=== PATIENT | female | born 1925 | race Caucasian/White ===

== ENCOUNTER 2016-12-26 09:48 | Emergency (ER) | payer MEDICARE, OTHER ==
[2016-12-26 11:14] LABS: BASOPHILS # (AUTO) 0.1 10^3/uL (0.0-0.1); EOSINOPHILS % (AUTO) 0.5 %; HCT - HEMATOCRIT 37.2 % (37.0-47.0); HGB - HEMOGLOBIN 12.8 g/dL (12.0-16.0); LYMPHOCYTES # (AUTO) 1.2 10^3/uL (1.5-3.5); LYMPHOCYTES % (AUTO) 11.3 %; MEAN CORPUSCULAR HEMOGLOBIN 31.3 pg (27.0-31.0); MEAN CORPUSCULAR HGB CONC 34.3 g/dL (32.0-36.0); MEAN CORPUSCULAR VOLUME 91.2 fL (81.0-99.0); MEAN PLATELET VOLUME 7.6 fL (7.9-10.8); MONOCYTES # (AUTO) 0.9 10^3/uL (0.0-1.0); MONOCYTES % (AUTO) 8.3 %; NEUTROPHILS # (AUTO) 8.4 10^3/uL (1.5-6.6); NEUTROPHILS % (AUTO) 78.9 %; RED BLOOD COUNT 4.08 10^6/uL (4.20-5.40); RED CELL DISTRIBUTION WIDTH 12.7 % (12.0-15.0); UNCORRECTED WHITE BLOOD COUNT 10.7 x10^3/uL; WHITE BLOOD COUNT 10.7 x10^3/uL (4.8-10.8)
[2016-12-26 11:20] LABS: BILIRUBIN,URINE NEGATIVE (NEGATIVE)
[2016-12-26 11:21] LABS: UA w/ MICROSCOPIC CHARGE YES
[2016-12-26 11:26] LABS: ALBUMIN/GLOBULIN RATIO 1.2 (1.0-2.2); BILIRUBIN,TOTAL 1.1 mg/dL (0.2-1.0); CALCIUM 8.9 mg/dL (8.5-10.3); CREATININE 0.5 mg/dL (0.4-1.0); POTASSIUM 3.4 mmol/L (3.5-5.0); TOTAL PROTEIN 6.7 g/dL (6.7-8.2)
--- NOTE | 2016-12-26 11:29 | XRAY Preliminary Report ---
Exam: XR Abdomen 1 View IMPRESSION: 1. Nonspecific, nonobstructive bowel gas pattern. 2. Large amount of stool. [facility] SITE ID: [id number]
--- NOTE | 2016-12-26 11:31 | XRAY Report ---
EXAM: ABDOMEN RADIOGRAPHY EXAM DATE: 12/26/2016 11:03 AM. CLINICAL HISTORY: intestinal gas; with abd. pain. COMPARISON: None. TECHNIQUE: 1 view. FINDINGS: Bowel Gas Pattern: Mild/moderate colonic gas, without dilatation. Gaseous distended right abdominal b owel loop may represent a mildly dilated small bowel loop but substantial small bowel otherwise is no t demonstrated. This is a nonspecific, nonobstructive bowel gas pattern. Large amount stool present. Other: Upper lumbar dextro convexity scoliosis with extensive lumbar degenerative disease demonstrate d. Right upper quadrant abdominal surgical clips. IMPRESSION: 1. Nonspecific, nonobstructive bowel gas pattern. 2. Large amount of stool. [facility] Referring Provider Line: [phone] SITE ID: [id number]
[2016-12-26 11:36] LABS: UR CULTURE IF IND INDICATED
[2016-12-26] MEDS ORDERED: MINERAL OIL ENEMA 133 ML BOTTLE RC STA (12:30)
--- NOTE | 2016-12-26 12:32 | ED Physician Documentation ---
PD HPI ABD PAIN - Stated complaint Stated Complaint: INTESTINAL ISSUES - Chief complaint Chief Complaint: Abd Pain - History obtained from History obtained from: Patient, Family, Caregiver - History of Present Illness Timing - onset: How many days ago (several) Timing - details: Intermittant Quality: Other ("Full of gas") Location: All over / everywhere Associated symptoms: No: Fever, Nausea, Vomiting, Dysuria Similar symptoms before: Has not had sx before - Additional information Additional information: The patient is a very pleasant 89-year-old female who complains of being "full of gas." Her symptoms have been waxing and waning for the past several days. She denies associated nausea, vomiting, fever, or dysuria. She has been passing gas down below. She denies history of similar symptoms in the past. Surgical history is significant for hysterectomy, appendectomy, and cholecystectomy. She lives in her own home, and has a professional caster who accompanies her in the emergency department. Her daughter, who does not live with her, also accompanies her. Review of Systems Constitutional: denies: Fever Nose: denies: Congestion Throat: denies: Sore throat Cardiac: denies: Chest pain / pressure Respiratory: denies: Dyspnea, Cough GI: reports: Abdominal Pain (mild), Constipation. 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 HEENT: Cataracts - Present Medications Home Medications: Ambulatory Orders Medication Instructions Recorded Confirmed Acetaminophen [Tylenol] 650 mg PO Q8HR 10/20/15 10/20/15 Atorvastatin Calcium [Lipitor] 40 mg PO DAILY 10/20/15 10/20/15 Calcium Carbonate/Vitamin D3 600 mg PO DAILY 10/20/15 10/20/15 [Calcium 600 + Vit D 400 Tablet] Chlordiazepoxide/Clidinium Br 1 each PO ONCE PRN 10/20/15 10/20/15 [Librax Capsule] Hydrochlorothiazide 25 mg PO DAILY 10/20/15 10/20/15 L.acidoph/L.rhamn/B.bif/B.long 12.9 mg PO DAILY 10/20/15 10/20/15 [Probiotic Acidophilus Biobeads] Lansoprazole [Prevacid] 30 mg PO DAILY 10/20/15 10/20/15 Potassium Chloride [Micro-K] 10 meq PO DAILY 10/20/15 10/20/15 Tiotropium [place] [Spiriva] 18 mcg IH DAILY 10/20/15 10/20/15 Bisacodyl Supp [Dulcolax Supp] 10 mg ND DAILY #10 supp 12/26/16 Nitrofurantoin [Macrobid] 100 mg PO BID #10 capsule 12/26/16 - Allergies Allergies/Adverse Reactions: Allergies Allergy/AdvReac Type Severity Reaction Status Date / Time tetracycline Allergy Rash Verified 10/20/15 07:18 - Living Situation Living Arrangement: reports: At home - Social History Does the pt smoke?: No Smoking Status: Never smoker PD ED PE NORMAL - Vitals Vital signs reviewed: Yes (hypertensive initially) - General General: Alert and oriented X 3, Well developed/nourished - HEENT HEENT: Atraumatic, Pharynx benign - Neck Neck: No adenopathy, No JVD - Cardiac Cardiac: RRR - Respiratory Respiratory: No respiratory distress, Clear bilaterally - Abdomen Abdomen: Normal bowel sounds, Soft, Non tender, No organomegaly, Other ( Nondistended, with no focal tenderness to palpation, and no rebound tenderness or guarding.) - Back Back: No CVA TTP - Derm Derm: No rash - Extremities Extremities: No edema, No calf tenderness / cord - Neuro Neuro: Alert and oriented X 3, No motor deficit, Normal speech Results - Vitals Vitals: Oxygen O2 Source Room air - Labs Labs: Microbiology 12/26/16 11:11 Urine Culture - Preliminary Urine,Clean Catch Laboratory Tests 12/26/16 12/26/16 12/26/16 10:47 10:47 11:11 WBC 10.7 RBC 4.08 L Hgb 12.8 Hct 37.2 MCV 91.2 MCH 31.3 H MCHC 34.3 RDW 12.7 Plt Count 292 MPV 7.6 L Neut # 8.4 H Lymph # 1.2 L [place] # 0.9 Eos # 0.0 Baso # 0.1 Absolute Nucleated RBC 0.00 Nucleated RBCs 0.0 Sodium 129 L Potassium 3.4 L Chloride 92 L Carbon Dioxide 27 Anion Gap 10.0 BUN 10 Creatinine 0.5 Estimated GFR (MDRD) 116 Glucose 120 H Calcium 8.9 Total Bilirubin 1.1 H AST 19 ALT 15 Alkaline Phosphatase 61 Total Protein 6.7 Albumin 3.7 Globulin 3.0 Albumin/Globulin Ratio 1.2 Lipase 16 L Urine Color YELLOW Urine Clarity SL. CLOUDY Urine pH 7.0 Ur Specific [place] <=1.005 Urine Protein NEGATIVE Urine Glucose (UA) NEGATIVE Urine Ketones NEGATIVE Urine Occult Blood TRACE-LYSE Urine Nitrite POSITIVE H Urine Bilirubin NEGATIVE Urine Urobilinogen 0.2 (NORMAL) Ur Leukocyte Esterase NEGATIVE Urine RBC 0-5 Urine WBC 4-5 Ur Squamous Epith Cells RARE Squamous Urine Bacteria Many H Ur Microscopic Review INDICATED Urine Culture Comments INDICATED - Rads (name of study) 1-view abdominal xray Radiology: Prelim report reviewed, EMP read contemporaneously, See rad report ( Nonspecific, nonobstructive bowel gas pattern. A large amount of stool.) PD MEDICAL DECISION MAKING - ED course Complexity details: reviewed results, re-evaluated patient, considered differential, d/w patient, d/w family ED course: The patient's presentation is significant for constipation, which is confirmed on plainview abdominal film. Her presentation does not suggest bowel obstruction, diverticulitis, or pyelonephritis. Her urinalysis does reveal evidence of cystitis, with positive nitrites and many bacteria. Chemistry panel is significant for hyponatremia with a sodium of 129. Treatment in the emergency department included administration of mineral oil enema, which produced minimal results. In addition nitrofurantoin 100 mg administered orally. She is being discharged with prescriptions for Macrobid and Dulcolax. She will also use milk of magnesia. I discussed with her, her daughter, and her professional caster the results of her workup, outpatient treatment and follow-up, as well as potentially worrisome signs or symptoms that should prompt reevaluation in the emergency department. Departure - Departure Disposition: 01 Home, Self Care Clinical Impression: Hyponatremia Constipation Qualifiers: Constipation type: slow transit constipation Qualified Code(s): K59.01 - Slow transit constipation Urinary tract infection Qualifiers: Urinary tract infection type: acute cystitis Hematuria presence: without hematuria Qualified Code(s): N30.00 - Acute cystitis without hematuria Condition: Stable Instructions: ED Constipation, ED UTI Cystitis Female Follow-Up: Paris Jimenez PA [Primary Care Provider] - Prescriptions: Bisacodyl Supp [Dulcolax Supp] 10 mg ND DAILY #10 supp Nitrofurantoin [Macrobid] 100 mg PO BID #10 capsule Comments: Drink plenty of fluids, including cranberry juice. Eat fruits such as purulence, apricots, peaches, that promote bowel movement. You can take Milk of Magnesia, 30 mL daily. Use Dulcolax suppositories daily, and fleets enema as needed. Take Macrobid twice daily for 5 days as prescribed. Follow up with her primary physician as scheduled. Return to the emergency department if you develop increasing abdominal pain, or otherwise worsening symptoms. Discharge Date/Time: 12/26/16 13:11
[2016-12-26] MEDS ORDERED: NITROFURANTOIN MACRO 100 MG CAPSULE PO STA (12:46)
[2016-12-26 12:58] VITALS: BP 123/85
== END 2016-12-26 13:11 | disposition home or self-care (01) ==
LOC: ED 09:48
DX: E87.1 Hypo-osmolality and hyponatremia (principal); K59.01 Slow transit constipation; N30.00 Acute cystitis without hematuria; I10 Essential (primary) hypertension; E78.00 Pure hypercholesterolemia, unspecified; J44.9 Chronic obstructive pulmonary disease, unspecified; K21.9 Gastro-esophageal reflux disease without esophagitis
CPT/HCPCS: 36415; 74000; 80053; 81001; 83690; 85025; 87077; 87086; 87181; 99284; A9270; 81003

== ENCOUNTER 2017-02-11 15:27 | Emergency (ER) | payer MEDICARE, OTHER ==
--- NOTE | 2017-02-11 15:55 | ED Physician Documentation ---
History of Present Illness - Stated complaint Stated Complaint: CONFUSION / RASH UNDER BREAST/ FEMALE - Chief complaint Chief Complaint: General - Additonal information Additional information: hx from pt and daughter 89 female AMS /confusion for about a week hx same with UTI no MALONE CP AP no fever chills cough NVD does have a rash under breasts and in inguinal creases despite drying powder no falls, no med changes Review of Systems Constitutional: denies: Fever, Chills Cardiac: denies: Chest pain / pressure Respiratory: denies: Dyspnea, Cough GI: denies: Abdominal Pain, Nausea, Vomiting, Diarrhea Skin: reports: Rash Neurologic: reports: Confused. 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 HEENT: Cataracts - Present Medications Home Medications: Ambulatory Orders Medication Instructions Recorded Confirmed Acetaminophen [Tylenol] 650 mg PO Q8HR 10/20/15 02/11/17 Atorvastatin Calcium [Lipitor] 40 mg PO DAILY 10/20/15 02/11/17 Calcium Carbonate/Vitamin D3 600 mg PO DAILY 10/20/15 02/11/17 [Calcium 600 + Vit D 400 Tablet] Hydrochlorothiazide 25 mg PO DAILY 10/20/15 02/11/17 L.acidoph/L.rhamn/B.bif/B.long 12.9 mg PO DAILY 10/20/15 02/11/17 [Probiotic Acidophilus Biobeads] Lansoprazole [Prevacid] 30 mg PO DAILY 10/20/15 02/11/17 Potassium Chloride [Micro-K] 10 meq PO DAILY 10/20/15 02/11/17 Tiotropium [place] [Spiriva] 18 mcg IH DAILY 10/20/15 02/11/17 Bisacodyl Supp [Dulcolax Supp] 10 mg [place] DAILY #10 supp 12/26/16 02/11/17 Azithromycin [Zithromax] 250 mg PO DAILY #6 tablet 02/11/17 Clotrimazole [Clotrimazole AF] 1 applic TP BID #30 g 02/11/17 - Allergies Allergies/Adverse Reactions: Allergies Allergy/AdvReac Type Severity Reaction Status Date / Time tetracycline Allergy Rash Verified 10/20/15 07:18 - Social History Does the pt smoke?: No Smoking Status: Never smoker PD ED PE NORMAL - Vitals Vital signs reviewed: Yes - General General: Other (alert oriented to name place and present president) - HEENT HEENT: Atraumatic, PERRL - Neck Neck: Supple, no meningeal sign - Cardiac Cardiac: RRR - Respiratory Respiratory: No respiratory distress, Clear bilaterally - Abdomen Abdomen: Soft, Non tender - Derm Derm: Other (yeast dermatitis under breast to to inguinal region) - Neuro Neuro: Alert and oriented X 3 (to person place and close on date - knows she read Sunday news today) - Psych Psych: Other (cherful) Results - Vitals Vitals: Vital Signs - 24 hr 02/11/17 02/11/17 15:36 17:59 Temperature 36.5 C Heart Rate 83 85 Respiratory 18 Rate Blood Pressure 205/88 H 206/100 H O2 Saturation 97 95 Oxygen O2 Source Nasal cannula - Labs Labs: Laboratory Tests 02/11/17 02/11/17 02/11/17 16:13 16:13 17:00 WBC 11.3 H RBC 4.23 Hgb 12.9 Hct 39.3 MCV 93.0 MCH 30.5 MCHC 32.8 RDW 13.0 Plt Count 287 MPV 7.7 L Neut # 8.8 H Lymph # 1.3 L [place] # 1.1 H Eos # 0.1 Baso # 0.1 Absolute Nucleated RBC 0.00 Nucleated RBCs 0.0 Sodium 134 L Potassium 3.7 Chloride 97 L Carbon Dioxide 29 Anion Gap 8.0 BUN 13 Creatinine 0.6 Estimated GFR (MDRD) 94 Glucose 117 H Calcium 9.2 Urine Color YELLOW Urine Clarity CLOUDY Urine pH 7.0 Ur Specific [place] 1.010 Urine Protein NEGATIVE Urine Glucose (UA) NEGATIVE Urine Ketones NEGATIVE Urine Occult Blood TRACE-LYSE Urine Nitrite NEGATIVE Urine Bilirubin NEGATIVE Urine Urobilinogen 0.2 (NORMAL) Ur Leukocyte Esterase NEGATIVE Urine RBC 0-5 Urine WBC 0-3 Ur Squamous Epith Cells MOD Squamous H Amorphous Sediment Marked Urine Bacteria None Seen Ur Microscopic Review INDICATED Urine Culture Comments NOT INDICATED - Rads (name of study) CXR Radiology: See rad report (lingular infiltrate) Departure - Departure Disposition: 01 Home, Self Care Clinical Impression: Yeast dermatitis Pneumonia Qualifiers: Pneumonia type: due to unspecified organism Laterality: left Lung location: unspecified part of lung Qualified Code(s): J18.9 - Pneumonia, unspecified organism Condition: Good Instructions: ED Candidiasis Cutaneous Prescriptions: Clotrimazole [Clotrimazole AF] 1 applic TP BID #30 g Azithromycin [Zithromax] 250 mg PO DAILY #6 tablet Comments: So there was no urine infection but the chest xray showed a pneumonia. As with urine and other infections, infections, pneumonia can cause some temporary confusion. This should get better as the antibiotics have a chance to work But I recommend you stay with a family member or caregiver or some other responsible adult at all times until you feel better Please follow up with your PMD to get your blood pressure rechecked - it was high today
[2017-02-11 16:21] LABS: BASOPHILS # (AUTO) 0.1 10^3/uL (0.0-0.1); BASOPHILS % (AUTO) 0.5 %; EOSINOPHILS # (AUTO) 0.1 10^3/uL (0.0-0.7); HCT - HEMATOCRIT 39.3 % (37.0-47.0); HGB - HEMOGLOBIN 12.9 g/dL (12.0-16.0); LYMPHOCYTES # (AUTO) 1.3 10^3/uL (1.5-3.5); LYMPHOCYTES % (AUTO) 11.4 %; MEAN CORPUSCULAR HEMOGLOBIN 30.5 pg (27.0-31.0); MEAN CORPUSCULAR HGB CONC 32.8 g/dL (32.0-36.0); MEAN PLATELET VOLUME 7.7 fL (7.9-10.8); MONOCYTES # (AUTO) 1.1 10^3/uL (0.0-1.0); MONOCYTES % (AUTO) 9.9 %; NEUTROPHILS # (AUTO) 8.8 10^3/uL (1.5-6.6); NEUTROPHILS % (AUTO) 77.2 %; RED BLOOD COUNT 4.23 10^6/uL (4.20-5.40); UNCORRECTED WHITE BLOOD COUNT 11.3 x10^3/uL; WHITE BLOOD COUNT 11.3 x10^3/uL (4.8-10.8)
[2017-02-11 16:37] LABS: CALCIUM 9.2 mg/dL (8.5-10.3); CREATININE 0.6 mg/dL (0.4-1.0); POTASSIUM 3.7 mmol/L (3.5-5.0)
[2017-02-11 17:19] LABS: BILIRUBIN,URINE NEGATIVE (NEGATIVE)
[2017-02-11 17:29] LABS: UA w/ MICROSCOPIC CHARGE YES
[2017-02-11 17:30] LABS: UR CULTURE IF IND NOT INDICATED; WBC,URINE 0-3 /HPF (0-5)
[2017-02-11] MEDS ORDERED: AZITHROMYCIN 250 MG TABLET PO STA (17:48)
[2017-02-11] MEDS ORDERED: AZITHROMYCIN 250 MG TABLET PO ONE (17:56)
--- NOTE | 2017-02-11 19:47 | XRAY Preliminary Report ---
Exam: XR Chest 2 View PA/LAT IMPRESSION: Hyperinflated lungs, in keeping with COPD. [facility] SITE ID: [id number]
--- NOTE | 2017-02-11 19:49 | XRAY Report ---
EXAM: CHEST RADIOGRAPHY EXAM DATE: 02/11/2017 07:07 PM. CLINICAL HISTORY: AMS, concern for infection. COMPARISON: CT 01/28/2016. TECHNIQUE: 2 views. FINDINGS: Lungs/Pleura: The lungs are hyperinflated, in keeping with COPD. No focal consolidation. No large ple ural effusions. Mediastinum: Heart and mediastinal contours are unremarkable. Other: None. IMPRESSION: Hyperinflated lungs, in keeping with COPD. [facility] Referring Provider Line: [phone] SITE ID: [id number]
[2017-02-11 20:25] VITALS: BP 192/90
== END 2017-02-11 20:28 | disposition home or self-care (01) ==
LOC: ED 15:27
DX: L30.8 Other specified dermatitis (principal); B37.9 Candidiasis, unspecified; J11.89 Influenza due to unidentified influenza virus with other manifestations; I10 Essential (primary) hypertension; E78.00 Pure hypercholesterolemia, unspecified
CPT/HCPCS: 36415; 71020; 80048; 81001; 85025; 99283; A9270; 81003; 87086

== ENCOUNTER 2017-02-14 10:09 | Outpatient (CLI) | payer MEDICARE, OTHER ==
[2017-02-14] MEDS ORDERED: IOPAMIDOL-300 100 ML VIAL IVP ONE (12:09)
--- NOTE | 2017-02-14 15:32 | CT Report ---
CT OF THE ABDOMEN AND PELVIS WITH CONTRAST: 02/14/2017 CLINICAL INDICATION: Abdominal pain. TECHNIQUE: Axial CT images of the abdomen and pelvis were obtained with 100 mL of Isovue-300 intraven ously. As requested, oral contrast was not administered. No previous CT is available for comparison. FINDINGS: Limited evaluation of the lung bases demonstrates a moderate hiatal hernia and linear atel ectasis. ABDOMEN: The patient is status post cholecystectomy. The liver, spleen, pancreas, kidneys and adrenal glands appear unremarkable. No bowel dilatation, free gas, or free fluid is present. No abdominal ad enopathy is seen. PELVIS: There is sigmoid diverticulosis, without CT evidence of diverticulitis. No pelvic adenopathy or free fluid is present. The patient is status post hysterectomy. The osseous structures demonstrate degenerative changes. IMPRESSION: MODERATE HIATAL HERNIA. NO EVIDENCE OF BOWEL OBSTRUCTION. DIVERTICULOSIS, WITHOUT CT SUBHA DENCE OF DIVERTICULITIS. In accordance with CT protocol optimization, one or more of the following dose reduction techniques w ere utilized for this exam: automated exposure control, adjustment of mA and/or KV based on patient size, or use of iterative reconstructive technique. JOB #: [id number] EXT JOB #:[id number]
== END 2017-02-14 10:10 | disposition home or self-care (01) ==
LOC: DI 10:09
PROVIDERS: ATTEND Physician Assistant
DX: R10.9 Unspecified abdominal pain (principal); K59.00 Constipation, unspecified; R11.0 Nausea; K44.9 Diaphragmatic hernia without obstruction or gangrene
CPT/HCPCS: 74177; Q9967; 36415; 80053

== ENCOUNTER 2017-02-27 11:08 | Outpatient (CLI) | payer MEDICARE, OTHER ==
--- NOTE | 2017-02-27 13:43 | CT Report ---
CT BRAIN WITHOUT CONTRAST: 02/27/2017 CLINICAL INDICATION: Confusion, memory loss. COMPARISON: 02/19/2006 TECHNIQUE: Axial CT images of the brain were obtained without intravenous contrast. FINDINGS: There has been progression of atrophy, with symmetric enlargement of ventricles and sulci. Chronic ischemic changes are noted in the periventricular white matter structures. There is no garcia dence of acute hemorrhage, mass effect, or midline shift. The basilar cisterns are patent. The visu alized orbital contents and paranasal sinuses are unremarkable. IMPRESSION: ATROPHY AND CHRONIC ISCHEMIC CHANGES. NO EVIDENCE OF HEMORRHAGE OR MASS EFFECT. In accordance with CT protocol optimization, one or more of the following dose reduction techniques w ere utilized for this exam: automated exposure control, adjustment of mA and/or KV based on patient size, or use of iterative reconstructive technique. JOB #: [id number] EXT JOB #:[id number]
== END 2017-02-27 11:09 | disposition home or self-care (01) ==
LOC: DI 11:08
PROVIDERS: ATTEND Physician Assistant
DX: R90.89 Other abnormal findings on diagnostic imaging of central nervous system (principal)
CPT/HCPCS: 70450

== ENCOUNTER 2017-03-28 08:00 | Outpatient (CLI) | payer MEDICARE, OTHER ==
[2017-03-28 14:56] LABS: BILIRUBIN,URINE NEGATIVE (NEGATIVE)
[2017-03-28 14:57] LABS: UA CHARGE (STRIP ONLY) YES; UR CULTURE IF IND NOT INDICATED
== END 2017-03-28 08:01 | disposition home or self-care (01) ==
LOC: LAB.R 08:00
PROVIDERS: ATTEND Nurse Practitioner Family
DX: R30.0 Dysuria (principal)
CPT/HCPCS: 81001; 81003; 87086

== ENCOUNTER 2017-07-25 17:49 | Inpatient (IN) | payer MEDICARE, OTHER ==
[2017-07-25] MEDS ORDERED: LIDOCAINE 1% 2 ML VIAL SUBQ ONE (19:16)
[2017-07-25] MEDS ORDERED: cefTRIAXone 1 GM VIAL IM STA (19:16)
--- NOTE | 2017-07-25 19:17 | ED Physician Documentation ---
History of Present Illness - Stated complaint Stated Complaint: COUGHING UP BLOOD - Chief complaint Chief Complaint: General - History obtained from History obtained from: Patient, Family (daughter) - History of Present Illness Timing: Other (She fell without injury this morning, they noticed she was running a low-grade fever and she was taken to an urgent care, a urinalysis was positive but she has not been able to start the antibiotics yet. 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 HEENT: Cataracts - Present Medications Home Medications: Ambulatory Orders Medication Instructions Recorded Confirmed Acetaminophen [Tylenol] 650 mg PO Q8HR 10/20/15 07/25/17 Atorvastatin Calcium [Lipitor] 40 mg PO DAILY 10/20/15 07/25/17 Calcium Carbonate/Vitamin D3 600 mg PO DAILY 10/20/15 07/25/17 [Calcium 600 + Vit D 400 Tablet] Hydrochlorothiazide 25 mg PO DAILY 10/20/15 07/25/17 L.acidoph/L.rhamn/B.bif/B.long 12.9 mg PO DAILY 10/20/15 07/25/17 [Probiotic Acidophilus Biobeads] Lansoprazole [Prevacid] 30 mg PO DAILY 10/20/15 07/25/17 Potassium Chloride [Micro-K] 10 meq PO DAILY 10/20/15 07/25/17 Tiotropium [place] [Spiriva] 18 mcg IH DAILY 10/20/15 07/25/17 Bisacodyl Supp [Dulcolax Supp] 10 mg [place] DAILY #10 supp 12/26/16 07/25/17 Clotrimazole [Clotrimazole AF] 1 applic TP BID #30 g 02/11/17 07/25/17 - Allergies Allergies/Adverse Reactions: Allergies Allergy/AdvReac Type Severity Reaction Status Date / Time tetracycline Allergy Rash Verified 10/20/15 07:18 - Social History Does the pt smoke?: No Smoking Status: Never smoker PD ED PE NORMAL - Vitals Vital signs reviewed: Yes - General General: Other (Alert and cooperative and pleasant but with poor memory) - HEENT HEENT: PERRL, EOMI - Neck Neck: Supple, no meningeal sign, No bony TTP - Cardiac Cardiac: RRR, No murmur - Respiratory Respiratory: No respiratory distress, Clear bilaterally - Abdomen Abdomen: Non tender - Extremities Extremities: No edema, No calf tenderness / cord - Neuro Eye Opening: Spontaneous Motor: Obeys Commands Verbal: Confused GCS Score: 14 - Psych Psych: Normal mood, Normal affect Results - Vitals Vitals: Vital Signs - 24 hr 07/25/17 07/25/17 18:03 20:58 Temperature 37.0 C Heart Rate 101 H 93 Respiratory 20 17 Rate Blood Pressure 99/63 106/51 L O2 Saturation 90 L 94 Oxygen O2 Source Room air - Labs Labs: Laboratory Tests 07/25/17 07/25/17 07/25/17 19:10 19:10 19:10 WBC 26.9 H RBC 4.18 L Hgb 12.1 Hct 37.2 MCV 89.1 MCH 28.8 MCHC 32.4 RDW 13.4 Plt Count 246 MPV 7.5 L Neut # Not Reportable Lymph # Not Reportable [place] # Not Reportable Eos # Not Reportable Baso # Not Reportable Absolute Nucleated RBC Not Reportable Total Counted 100 Band Neuts % (Manual) 10 Abnorm Lymph % (Manual) 0 Nucleated RBC % Not Reportable Neutrophils # (Manual) 24.7 H Lymphocytes # (Manual) 0.5 L Monocytes # (Manual) 1.6 H Eosinophils # (Manual) 0.0 Basophils # (Manual) 0.0 Differential Comment MANUAL DIFFERENTIAL Platelet Estimate NORMAL (130-450,000) Platelet Morphology NORMAL APPEARANCE RBC Morph Micro Appear NORMAL APPEARANCE PT INR Sodium 133 L Potassium 3.0 L Chloride 96 L Carbon Dioxide 25 Anion Gap 12.0 BUN 17 Creatinine 1.0 Estimated GFR (MDRD) 52 L Glucose 127 H Lactic Acid 1.5 Calcium 8.4 L Total Bilirubin 1.5 H AST 40 ALT 27 Alkaline Phosphatase 108 Total Protein 6.3 L Albumin 3.1 L Globulin 3.2 Albumin/Globulin Ratio 1.0 Lipase 14 L 07/25/17 19:10 WBC RBC Hgb Hct MCV MCH MCHC RDW Plt Count MPV Neut # Lymph # [place] # Eos # Baso # Absolute Nucleated RBC Total Counted Band Neuts % (Manual) Abnorm Lymph % (Manual) Nucleated RBC % Neutrophils # (Manual) Lymphocytes # (Manual) Monocytes # (Manual) Eosinophils # (Manual) Basophils # (Manual) Differential Comment Platelet Estimate Platelet Morphology RBC Morph Micro Appear PT 12.9 H INR 1.1 Sodium Potassium Chloride Carbon Dioxide Anion Gap BUN Creatinine Estimated GFR (MDRD) Glucose Lactic Acid Calcium Total Bilirubin AST ALT Alkaline Phosphatase Total Protein Albumin Globulin Albumin/Globulin Ratio Lipase - Rads (name of study) 2v chest Radiology: EMP read contemporaneously (NAD) PD MEDICAL DECISION MAKING - ED course ED course: 89-year-old woman with known UTI, has not been able to start the antibiotics and presents with slight hemoptysis tonight but has normal pulmonary examination. Workup demonstrates a significantly elevated white blood cell count at 26,000 and therefore admission is mandated and a call the hospitalist was placed at 7:38 PM. - Consults Consults: Consulted (name) (Spoke with Dr. Medina for admission at 7:50 PM.) Departure - Departure Disposition: [facility] DC/Xfer Clinical Impression: Urinary tract infection Qualifiers: Urinary tract infection type: acute pyelonephritis Qualified Code(s): N10 - Acute pyelonephritis Sepsis Qualifiers: Sepsis type: sepsis due to unspecified organism Qualified Code(s): A41.9 - Sepsis, unspecified organism Condition: Serious
[2017-07-25 19:20] LABS: BASOPHILS % (AUTO) 0.2 %; HGB - HEMOGLOBIN 12.1 g/dL (12.0-16.0); LYMPHOCYTES % (AUTO) 1.5 %; MEAN CORPUSCULAR HEMOGLOBIN 28.8 pg (27.0-31.0); MEAN CORPUSCULAR HGB CONC 32.4 g/dL (32.0-36.0); MEAN CORPUSCULAR VOLUME 89.1 fL (81.0-99.0); MEAN PLATELET VOLUME 7.5 fL (7.9-10.8); MONOCYTES % (AUTO) 3.6 %; NEUTROPHILS % (AUTO) 94.7 %; PLT - PLATELET COUNT 246 10^3/uL (130-450); RED BLOOD COUNT 4.18 10^6/uL (4.20-5.40); RED CELL DISTRIBUTION WIDTH 13.4 % (12.0-15.0); WHITE BLOOD COUNT 26.9 x10^3/uL (4.8-10.8)
[2017-07-25 19:23] LABS: ABNORMAL LYMPHS % (MANUAL) 0 %
--- NOTE | 2017-07-25 19:27 | XRAY Preliminary Report ---
Exam: XR CHEST 2 VIEW X-RAY IMPRESSION: Chronic lung disease. [facility] SITE ID: [id number]
[2017-07-25 19:34] LABS: ALBUMIN 3.1 g/dL (3.2-5.5); BILIRUBIN,TOTAL 1.5 mg/dL (0.2-1.0); CALCIUM 8.4 mg/dL (8.5-10.3); TOTAL PROTEIN 6.3 g/dL (6.7-8.2)
--- NOTE | 2017-07-25 19:34 | XRAY Report ---
EXAM: CHEST RADIOGRAPHY EXAM DATE: 07/25/2017 07:01 PM. CLINICAL HISTORY: Cough. COMPARISON: 02/11/2017. TECHNIQUE: 2 views. FINDINGS: Lungs/Pleura: No focal opacities evident. No pleural effusion. No pneumothorax. Overexpanded. Mediastinum: Heart and mediastinal contours are unremarkable. Other: None. IMPRESSION: Chronic lung disease. [facility] Referring Provider Line: [phone] SITE ID: [id number]
[2017-07-25] MEDS ORDERED: SODIUM CHLORIDE 0.9% 1,000 ML IV ONE (19:37)
[2017-07-25] MEDS ORDERED: levoFLOXacin 500 MG/100 ML 500 MG/100 ML BAG IV STA (19:38)
[2017-07-25 19:56] LABS: BAND NEUTROPHILS % (MANUAL) 10 %; LYMPHOCYTES # (MANUAL) 0.5 10^3/uL (1.5-3.5); LYMPHOCYTES % (MANUAL) 2 %; MONOCYTES # (MANUAL) 1.6 10^3/uL (0.0-1.0); NEUTROPHILS # (MANUAL) 24.7 10^3/uL (1.5-6.6); NEUTROPHILS % (MANUAL) 82 %
[2017-07-25 19:57] LABS: DIFFERENTIAL COMMENT MANUAL DIFFERENTIAL; PLATELET ESTIMATE, MANUAL NORMAL (130-450,000) (NORMAL); PLATELET MORPHOLOGY NORMAL APPEARANCE (NORMAL); RBC MORPHOLOGY (MULTIPLE) NORMAL APPEARANCE (NORMAL)
[2017-07-25] MEDS ORDERED: ACETAMINOPHEN 325 MG TABLET PO PRN (21:34)
[2017-07-25 21:48] LABS: INR 1.1 (0.8-1.2); PT - PROTHROMBIN TIME 12.9 secs (9.9-12.6)
[2017-07-25] MEDS: DEXTROSE 5%-0.9% NACL 1,000 ML IV SCH (23:36)
[2017-07-25] MEDS: SODIUM CHLORIDE FLUSH 0.9% 10 ML SYRINGE IVP SCH (23:36)
[2017-07-25] MEDS ORDERED: PROCHLORPERAZINE INJ 10 MG in SODIUM CHLORIDE 0.9% 50 ML IV PRN (23:42)
--- NOTE | 2017-07-26 03:58 | HISTORY & PHYSICAL EXAMINATION ---
DATE OF SERVICE: 07/25/2017 Physician: Petrona Krause MD DATE OF ADMISSION: 07/25/2017 HISTORY OF PRESENT ILLNESS: This is an 89-year-old white female with a history of hypertension, hyperlipidemia, COPD, GERD, chronic back pain, and cataracts. She states that she was weak and fell this morning and family members noticed that she was running a low grade fever and took her to Urgent Care where a urinalysis was done and was positive for a UTI and she was to start antibiotics, which she has not yet picked up. She had a small amount of cough with blood-tinged sputum tonight and for that reason the family brought her to the emergency room. The patient cannot give a detailed history of the current events, but has a memory for remote events. The patient states she currently only has her chronic hip and low back pain and no other complaints. She is not short of breath. She does have some mild dysuria. She has had no shaking chills. She is compliant with all her medications. She was hypotensive in the emergency room and felt to be septic and has been admitted for urosepsis REVIEW OF SYSTEMS: A comprehensive review of systems was attempted; however, she is confused and cannot give details, she repeats her answers multiple times. The only positives are what are available in the HPI above. PAST MEDICAL HISTORY: Hypertension, hyperlipidemia, COPD, GERD, chronic back pain, and cataracts. MEDICATIONS AT HOME 1. Tylenol p.r.n. 2. Lipitor 40 mg daily. 3. Calcium with vitamin D3. 4. Hydrochlorothiazide 25 mg daily. 5. Lactobacillus daily. 6. Prevacid daily. 7. Potassium chloride 10 mEq daily. 8. Spiriva daily. 9. Dulcolax suppository p.r.n. 10. Clotrimazole topical b.i.d. ALLERGIES: TETRACYCLINE, WHICH CAUSED A RASH. SOCIAL HISTORY: She never smoked, drinks no alcohol. She lives with her daughter. PHYSICAL EXAMINATION GENERAL: Elderly white female who is in no distress. VITAL SIGNS: Blood pressure on presentation was 99/63 and after fluid hydration she is now 117/53. Her pulse is 87 in sinus rhythm. Her early pulse was 101. She is afebrile, room air saturation is 94%. HEENT: Shows moist oral mucosa. NECK: Shows no JVD, no carotid bruits, no lymphadenopathy. CHEST: Clear. No wheezes or rales. HEART: Sounds are normal. No audible murmurs. ABDOMEN: Soft. EXTREMITIES: Show no clubbing, cyanosis or edema. SKIN: Mild tenting. NEUROLOGIC: Grossly intact except for the memory as described above. LABORATORY DATA: Sodium 133, potassium 3.0, BUN 17, creatinine 1.0. Bilirubin 1.5, alkaline phosphatase normal, AST and ALT normal. Albumin 3.1, lipase normal. White blood count 26.9 with a left shift, hemoglobin is 12 and platelet count normal at 246. INR normal at 1.1. IMAGING: Chest x-ray showed COPD and no infiltrates were seen. No EKG was done. IMPRESSION/DIAGNOSES 1. Sepsis by virtue of tachycardia, low blood pressure, and the urinary tract infection is the likely source. 2. Urinary tract infection with dysuria. 3. Chronic obstructive pulmonary disease, on Spiriva. 4. Confusion, probable dementia. 5. Hyponatremia and evidence of mild dehydration on clinical exam. PLAN Admit the patient to medical/surgical floor, begin IV hydration, and her diet can be regular. (The patient did have a regular dinner today though and started vomiting after her milk; therefore, I will change the diet to a full liquid diet). Obtain urine and blood cultures and if possible, since there was sputum production, also obtain a sputum culture. Continue with the IV antibiotics that were started in the ER for urosepsis, using ceftriaxone and levofloxacin. Follow her white blood count, sodium, BUN, creatinine, and obtain a magnesium. DVT prophylaxis: Lovenox 40 mg subcutaneous daily. CODE STATUS: DO NOT RESUSCITATE (I reviewed this with the patient at bedside with the nurse present to confirm this). ATTESTATION: The patient will be discharged or transferred to another facility within 96 hours: Yes. TD: 07/26/2017 04:57 AMBER
[2017-07-26 05:44] LABS: BASOPHILS % (AUTO) 0.2 %; HGB - HEMOGLOBIN 10.6 g/dL (12.0-16.0); LYMPHOCYTES % (AUTO) 2.9 %; MEAN CORPUSCULAR HEMOGLOBIN 29.5 pg (27.0-31.0); MEAN CORPUSCULAR VOLUME 89.4 fL (81.0-99.0); MEAN PLATELET VOLUME 7.9 fL (7.9-10.8); MONOCYTES % (AUTO) 6.8 %; NEUTROPHILS % (AUTO) 90.1 %; PLT - PLATELET COUNT 196 10^3/uL (130-450); RED CELL DISTRIBUTION WIDTH 13.2 % (12.0-15.0); WHITE BLOOD COUNT 27.1 x10^3/uL (4.8-10.8)
[2017-07-26 05:52] LABS: CALCIUM 7.9 mg/dL (8.5-10.3); CREATININE 0.9 mg/dL (0.4-1.0)
[2017-07-26 05:58] LABS: ABNORMAL LYMPHS % (MANUAL) 0 %
[2017-07-26 06:14] LABS: BAND NEUTROPHILS % (MANUAL) 17 %; DIFFERENTIAL COMMENT MANUAL DIFFERENTIAL; LYMPHOCYTES # (MANUAL) 1.4 10^3/uL (1.5-3.5); LYMPHOCYTES % (MANUAL) 5 %; MONOCYTES # (MANUAL) 0.8 10^3/uL (0.0-1.0); NEUTROPHILS # (MANUAL) 24.9 10^3/uL (1.5-6.6); NEUTROPHILS % (MANUAL) 75 %; PLATELET ESTIMATE, MANUAL NORMAL (130-450,000) (NORMAL); RBC MORPHOLOGY (MULTIPLE) NORMAL APPEARANCE (NORMAL)
[2017-07-26] MEDS: SODIUM CHLORIDE FLUSH 0.9% 10 ML SYRINGE IVP SCH ×3 (06:52→21:22)
--- NOTE | 2017-07-26 08:01 | PROVIDER PROGRESS NOTE ---
Subjective - Prog Note Date Prog Note Date: 07/26/17 Prog Note Time: 08:00 - Subjective Pt reports feeling: Improved Subjective: Melody complains of discomfort in her right inner cheek, where she may have bit herself during her recent fall at [facility]. She denies SOB, chest pain , N/V or a new cough. Current Medications - Current Medications Current Medications: Active Medications Acetaminophen (Tylenol) 650 mg PO Q4HR PRN PRN Reason: Pain 1 to 4 Last Admin: 07/25/17 23:43 Dose: 650 mg Atorvastatin Calcium (Lipitor) 40 mg PO DAILY [facility] Bisacodyl (Dulcolax Supp) 10 mg RI DAILY [facility] Enoxaparin Sodium (Lovenox) 40 mg SUBQ DAILY [facility] Famotidine (Pepcid) 20 mg PO DAILY [facility] Dextrose/Sodium Chloride (D5ns) 1,000 mls @ 100 mls/hr IV .Q10H [facility] Last Admin: 07/25/17 23:36 Dose: 100 mls/hr Levofloxacin (Levaquin 750 Mg/150 Ml) 750 mg in 150 mls @ 100 mls/hr IV Q48H [facility] Ceftriaxone Sodium 1 gm/ (Sodium Chloride) 100 mls @ 200 mls/hr IV Q24H [facility] Prochlorperazine Edisylate 10 (mg/ Sodium Chloride) 52 mls @ 200 mls/hr IV Q6H PRN PRN Reason: Nausea / Vomiting Last Infusion: 07/26/17 00:35 Dose: Infused Ipratropium [place] (Atrovent) 0.5 mg INH RTQID [facility] Polyethylene Glycol (Miralax) 17 gm PO DAILY [facility] Sodium Chloride (Normal Saline Flush 0.9%) 10 ml IVP PRN PRN PRN Reason: NEEDED PER PROVIDER ORDERS Sodium Chloride (Normal Saline Flush 0.9%) 10 ml IVP Q8HR [facility] Last Admin: 07/26/17 06:52 Dose: Not Given Acetaminophen [Tylenol] 650 mg PO Q8HR 10/20/15 Atorvastatin Calcium [Lipitor] 40 mg PO DAILY 10/20/15 Calcium Carbonate/Vitamin D3 [Calcium 600 + Vit D 400 Tablet] 600 mg PO DAILY Hydrochlorothiazide 25 mg PO DAILY 10/20/15 L.acidoph/L.rhamn/B.bif/B.long [Probiotic Acidophilus Biobeads] 12.9 mg PO DAILY 10/20/15 Lansoprazole [Prevacid] 30 mg PO DAILY 10/20/15 Potassium Chloride [Micro-K] 10 meq PO DAILY 10/20/15 Tiotropium [place] [Spiriva] 18 mcg IH DAILY 10/20/15 Objective - Vital Signs/Intake & Output Reviewed Vital Signs: Yes Vital Signs: Vital Signs x48h Temp Pulse Resp BP Pulse Ox 07/26/17 01:55 36.8 C 83 16 112/49 L 97 Intake & Output: Intake & Output 07/23/17 07/24/17 07/25/17 07/26/17 23:59 23:59 23:59 23:59 Intake Total 1100 302 Balance 1100 302 - Objective General Appearance: positive: No acute distress Eyes Bilateral: positive: Normal inspection Eyes: OU Conjunctivae pale, OU Scleral icterus ENT: positive: ENT inspection nml, Pharynx nml, No signs of dehydration Neck: positive: Nml inspection, Thyroid nml, No JVD, Stiff neck Respiratory: positive: Chest non-tender, No respiratory distress, Breath sounds nml Cardiovascular: positive: Regular rate & rhythm, No gallop, Systolic murmur Peripheral Pulses: 2+ Radial (R), 2+ Radial (L) Abdomen: positive: Non-tender, No organomegaly, Nml bowel sounds, No distention , Other (rounded, soft.) Back: positive: Nml inspection Skin: positive: No rash, Warm, Dry, Pallor Extremities: positive: Non-tender, Full ROM, Nml appearance, No pedal edema Neurologic/Psychiatric: positive: CN's nml (2-12), Motor nml, Sensation nml, Disoriented to time, Weakness, Depressed mood/affect, Other (chronic STM lose.) Reflexes: Bicep (R): 2+, Bicep (L): 2+ - Lab Results Fish Bones: 07/26/17 05:33 07/26/17 05:33 Other Labs: Lab Results x24hrs 07/26/17 07/26/17 Range/Units 05:33 05:33 WBC 27.1 H (4.8-10.8) x10^3/uL RBC 3.60 L (4.20-5.40) 10^6/uL Hgb 10.6 L (12.0-16.0) g/dL Hct 32.2 L (37.0-47.0) % MCV 89.4 (81.0-99.0) fL MCH 29.5 (27.0-31.0) pg MCHC 33.0 (32.0-36.0) g/dL RDW 13.2 (12.0-15.0) % Plt Count 196 (130-450) 10^3/uL MPV 7.9 (7.9-10.8) fL Neut # Not Reportable Lymph # Not Reportable [place] # Not Reportable Eos # Not Reportable Baso # Not Reportable Absolute Nucleated RBC Not Reportable Total Counted 100 Band Neuts % (Manual) 17 H (0 - 10) % Abnorm Lymph % (Manual) 0 % Nucleated RBC % Not Reportable Neutrophils # (Manual) 24.9 H (1.5-6.6) 10^3/uL Lymphocytes # (Manual) 1.4 L (1.5-3.5) 10^3/uL Monocytes # (Manual) 0.8 (0.0-1.0) 10^3/uL Eosinophils # (Manual) 0.0 (0-0.7) 10^3/uL Basophils # (Manual) 0.0 (0-0.1) 10^3/uL Differential Comment MANUAL DIFFERENTIAL Platelet Estimate NORMAL (130-450,000) (NORMAL) RBC Morph Micro Appear NORMAL APPEARANCE (NORMAL) Sodium 136 (135-145) mmol/L Potassium 3.4 L (3.5-5.0) mmol/L Chloride 101 (101-111) mmol/L Carbon Dioxide 27 (21-32) mmol/L Anion Gap 8.0 (6-13) BUN 17 (6-20) mg/dL Creatinine 0.9 (0.4-1.0) mg/dL Estimated GFR (MDRD) 59 L (>89) Glucose 147 H (70-100) mg/dL Calcium 7.9 L (8.5-10.3) mg/dL - Diagnostic Imaging Diagnostic Imaging Results: positive: Final report reviewed Assessment/Plan - Problem List (1) Urinary tract infection Impression: Patient has history of urinary incontinence, and most recently had a fall without injury out of a low-bed at [facility]. She has not had signs of fevers/chills or hematuria. Per daughter, patient has been more confused. Urine collected in ED shows + occult, + protein, and culture is indicated. Plan: Start IV antibiotics as per Dr. García- Hospitalist with broad spectrum coverage and wait for sensitivities. Vancomycin added today per pharmacy review. Pure wick ordered for patient comfort. Qualifiers: Urinary tract infection type: acute pyelonephritis Qualified Code(s): N10 - Acute pyelonephritis (2) Hyponatremia Impression: Likely due to dehydration. Mucous membranes were noted to be dry on exam. Sodium was 133 upon admission that improved to 136 today. IVFs slowed down and changed to NS with 20 Kcl @ 50ml/hour. Plan: Give ice chips as tolerated. IVFs with gentle hydration. Continue to monitor labs. (3) COPD (chronic obstructive pulmonary disease) Impression: Patient has a history of oxygen dependence for at least the past 4 years per daughter's report. She is symptom controlled with Spiriva. Plan: Continue on LABA, LAMA and continuous oxygen. (4) Confusion Impression: DaughterSally was present for her mother's exam and notes that over the past week she has noticed that her mother has had a decline in her memory. Normally , her mother is very sharp and can recall recent events. Plan: Monitor mental status and encourage continuity of care with nursing staff. (5) Sepsis Impression: Blood cultures were obtained in the ED at the time of admission and are still pending. Patient was below her normal range of blood pressure, and tachycardic. Plan: Give IVFs, IV antibiotics and wait for blood cultures to result. Qualifiers: Sepsis type: sepsis due to unspecified organism Qualified Code(s): A41.9 - Sepsis, unspecified organism
[2017-07-26] MEDS: ATORVASTATIN 40 MG TABLET PO SCH (08:47)
[2017-07-26] MEDS: DEXTROSE 5%-0.9% NACL 1,000 ML IV SCH (08:47)
[2017-07-26] MEDS: POLYETHYLENE GLYCOL 3350 17 GM PACKET PO SCH (08:48)
[2017-07-26] MEDS: ENOXAPARIN 40 MG/0.4 ML SYRINGE SUBQ SCH (08:48)
[2017-07-26] MEDS: BISACODYL 10 MG SUPP PR SCH (08:48)
[2017-07-26] MEDS ORDERED: TIOTROPIUM INHALER INH SCH (09:00)
[2017-07-26] MEDS ORDERED: FAMOTIDINE 20 MG TABLET PO SCH (09:00)
[2017-07-26] MEDS: IPRATROPIUM 0.2 MG/ML NEB INH SCH ×5 (09:08→21:51)
[2017-07-26 12:43] LABS: BILIRUBIN,URINE NEGATIVE (NEGATIVE); CLARITY,URINE HAZY (CLEAR); GLUCOSE, URINE (UA) NEGATIVE (NEGATIVE); KETONES,URINE (UA) NEGATIVE (NEGATIVE); LEUKOCYTE ESTERASE, URINE MODERATE (NEGATIVE); NITRITE,URINE NEGATIVE (NEGATIVE); OCCULT BLOOD,URINE MODERATE (NEGATIVE); PROTEIN,URINE 30 mg/dL (NEGATIVE); UROBILINOGEN,URINE 0.2 (NORMAL) E.U./dL (NORMAL)
[2017-07-26 12:51] LABS: BACTERIA,URINE Few /HPF (None Seen); SQUAMOUS EPITHELIAL CELL,UR FEW Squamous (<= Few); WBC CLUMPS,URINE PRESENT
[2017-07-26] MEDS ORDERED: NS W/20 MEQ KCL 1,000 ML IV SCH (14:00)
[2017-07-26] MEDS ORDERED: VANCOMYCIN PER PHARMACY 1 GM in SODIUM CHLORIDE 0.9% 250 ML IV SCH (14:00)
[2017-07-26] MEDS ORDERED: VANCOMYCIN 1.5 GM/NS 500 ML 1.5 GM/500 ML BAG IV ONE (14:00)
[2017-07-26] MEDS: cefTRIAXone 1 GM in SODIUM CHLORIDE 0.9% MINIBAG 100 ML IV SCH (21:09)
[2017-07-26] MEDS: levoFLOXacin 750 MG/150 ML 750 MG/150 ML BAG IV SCH (22:29)
[2017-07-27] MEDS: SODIUM CHLORIDE FLUSH 0.9% 10 ML SYRINGE IVP SCH ×3 (05:56→20:33)
[2017-07-27] MEDS: BENZOCAINE/MENTHOL LOZENGE MM PRN (05:56)
[2017-07-27] MEDS: PROCHLORPERAZINE 10 MG/2 ML VIAL IVP PRN ×2 (05:56→17:56)
--- NOTE | 2017-07-27 07:55 | PROVIDER PROGRESS NOTE ---
Subjective - Prog Note Date Prog Note Date: 07/27/17 Prog Note Time: 07:55 - Subjective Pt reports feeling: Improved Subjective: Melody has been nauseated today that improved after anti-emetics, ambulation and moving her bowels. She denies SOB, chest pain, vomiting or a new cough. Current Medications - Current Medications Current Medications: Active Medications Acetaminophen (Tylenol) 650 mg PO Q4HR PRN PRN Reason: Pain 1 to 4 Last Admin: 07/25/17 23:43 Dose: 650 mg Atorvastatin Calcium (Lipitor) 40 mg PO DAILY [facility] Last Admin: 07/27/17 10:54 Dose: 40 mg Bisacodyl (Dulcolax Supp) 10 mg ID DAILY PRN PRN Reason: Constipation Enoxaparin Sodium (Lovenox) 40 mg SUBQ DAILY [facility] Last Admin: 07/27/17 10:54 Dose: 40 mg Levofloxacin (Levaquin 750 Mg/150 Ml) 750 mg in 150 mls @ 100 mls/hr IV Q48H [facility] Last Infusion: 07/27/17 00:15 Dose: Infused Ceftriaxone Sodium 1 gm/ (Sodium Chloride) 100 mls @ 200 mls/hr IV Q24H [facility] Last Infusion: 07/26/17 21:48 Dose: Infused Vancomycin HCl 1 gm/ Sodium (Chloride) 250 mls @ 167 mls/hr IV Q24H [facility] Last Infusion: 07/27/17 15:54 Dose: Infused Ipratropium [place] (Atrovent) 0.5 mg INH RTQID [facility] Last Admin: 07/27/17 15:00 Dose: 0.5 mg Lorazepam (Ativan Inj (Vial)) 0.5 mg IVP Q2H PRN PRN Reason: Anxiety Last Admin: 07/27/17 18:37 Dose: 0.5 mg Ondansetron HCl (Zofran Odt) 4 mg TL Q4HR PRN PRN Reason: Nausea / Vomiting Last Admin: 07/27/17 08:18 Dose: 4 mg Polyethylene Glycol (Miralax) 17 gm PO DAILY [facility] Last Admin: 07/27/17 10:42 Dose: Not Given Prochlorperazine Edisylate (Compazine Inj) 10 mg IVP Q6H PRN PRN Reason: Nausea / Vomiting Last Admin: 07/27/17 17:56 Dose: 10 mg Sodium Chloride (Normal Saline Flush 0.9%) 10 ml IVP PRN PRN PRN Reason: NEEDED PER PROVIDER ORDERS Last Admin: 07/27/17 10:56 Dose: 10 ml Sodium Chloride (Normal Saline Flush 0.9%) 10 ml IVP Q8HR [facility] Last Admin: 07/27/17 07:15 Dose: Not Given Throat Lozenges (Cepacol) 1 lozenge MM Q2HR PRN PRN Reason: Throat pain Last Admin: 07/27/17 05:56 Dose: 1 lozenge Acetaminophen [Tylenol] 1,300 mg PO Q8HR 10/20/15 Hydrochlorothiazide 25 mg PO DAILY 10/20/15 Tiotropium [place] [Spiriva] 1 puffs INH DAILY 10/20/15 Atorvastatin [Lipitor] 10 mg PO QPM 07/26/17 Omeprazole [PriLOSEC] 20 mg PO QDAC 07/26/17 Potassium Chloride [Klor-Con M20] 20 meq PO DAILYWM 07/26/17 Sertraline [Zoloft] 50 mg PO DAILY 07/26/17 Objective - Vital Signs/Intake & Output Reviewed Vital Signs: Yes Vital Signs: Vital Signs x48h Temp Pulse Resp BP Pulse Ox 07/27/17 00:30 36.7 C 84 18 147/69 H 94 Intake & Output: Intake & Output 07/24/17 07/25/17 07/26/17 07/27/17 23:59 23:59 23:59 23:59 Intake Total 1100 4031.166 250 Output Total 150 400 Balance 1100 3881.166 -150 - Objective General Appearance: positive: No acute distress, Alert Eyes: OU Conjunctivae pale ENT: positive: ENT inspection nml, Pharynx nml, No signs of dehydration Neck: positive: Nml inspection, Thyroid nml, No JVD, Trachea midline Respiratory: positive: Chest non-tender, No respiratory distress, Wheezes, Rales Cardiovascular: positive: No gallop, Irregularly irregular, Systolic murmur Peripheral Pulses: 2+ Radial (R), 2+ Radial (L) Abdomen: positive: No organomegaly, Guarding, Abnml bowel sounds Back: positive: Nml inspection Skin: positive: No rash, Warm, Dry, Pallor Extremities: positive: Non-tender, Full ROM, Nml appearance, Pedal edema Neurologic/Psychiatric: positive: Weakness, Sensory loss, Depressed mood/affect Reflexes: Bicep (R): 1+, Bicep (L): 1+ - Lab Results Fish Bones: 07/27/17 08:06 07/27/17 08:06 Other Labs: Lab Results x24hrs 07/26/17 Range/Units 12:35 Urine Color YELLOW Urine Clarity HAZY (CLEAR) Urine pH 6.0 (5.0-7.5) PH Ur Specific [place] 1.020 (1.002-1.030) Urine Protein 30 H (NEGATIVE) mg/dL Urine Glucose (UA) NEGATIVE (NEGATIVE) mg/dL Urine Ketones NEGATIVE (NEGATIVE) mg/dL Urine Occult Blood MODERATE H (NEGATIVE) Urine Nitrite NEGATIVE (NEGATIVE) Urine Bilirubin NEGATIVE (NEGATIVE) Urine Urobilinogen 0.2 (NORMAL) (NORMAL) E.U./dL Ur Leukocyte Esterase MODERATE H (NEGATIVE) Urine RBC 6-10 H (0-5) /HPF Urine WBC >25 H (0-5) /HPF Urine WBC Clumps PRESENT Ur Squamous Epith Cells FEW Squamous (<= Few) Urine Bacteria Few (None Seen) /HPF Ur Microscopic Review INDICATED Urine Culture Comments INDICATED - Diagnostic Imaging Diagnostic Imaging Results: positive: Prelim report reviewed, Final report reviewed Diagnostic Imaging Comments: chest x-ray ordered and pending due to increased pulmonary congestion. Assessment/Plan - Problem List (1) Sepsis Impression: Blood cultures were obtained in the ED at the time of admission and are NGTD. Patient was below her normal range of blood pressure, and tachycardic. Patient has been afebrile. Plan: Give IVFs, IV antibiotics and wait for blood cultures to result. Qualifiers: Sepsis type: sepsis due to unspecified organism Qualified Code(s): A41.9 - Sepsis, unspecified organism (2) Urinary tract infection Impression: Patient has history of urinary incontinence, and most recently had a [facility] without [facility] She has not had signs of fevers/chills or hematuria. Per daughter, patient has been more confused. Urine collected in ED shows + occult, + protein, and culture is indicated, NGTD so far. Plan: Start IV antibiotics as per Dr. García- Hospitalist with broad spectrum coverage and wait for sensitivities. Vancomycin added today per pharmacy review. Pure wick ordered for patient comfort. Qualifiers: Urinary tract infection type: acute pyelonephritis Qualified Code(s): N10 - Acute pyelonephritis (3) COPD (chronic obstructive pulmonary disease) Impression: Patient has a history of oxygen dependence for at least the past 4 years per daughter's report. She is symptom controlled with Spiriva. Plan: Continue on LABA, LAMA and continuous oxygen. (4) Confusion Impression: DaughterSally was present for her mother's exam and notes that over the past week she has noticed that her mother has had a decline in her memory. Normally , her mother is very sharp and can recall recent events. Plan: Monitor mental status and encourage continuity of care with nursing staff. (5) Hyponatremia Impression: Likely due to dehydration. Mucous membranes were noted to be dry on exam. Sodium was 133 upon admission that improved to 135 today. IVFs now discontinued. Plan: Give ice chips as tolerated. Continue to monitor labs. (6) Nausea Impression: Patient's primary complaint today upon exam was feeling "sick to her stomach". She can get anti-emetics. Patient found relief after moving her bowels and ambulating in the halls. Plan: Continue medical management and lorazepam IV added for continued complaints.
[2017-07-27] MEDS ORDERED: ONDANSETRON ODT 4 MG TABLET TL PRN (08:05)
[2017-07-27] MEDS: IPRATROPIUM 0.2 MG/ML NEB INH SCH ×4 (08:20→20:00)
[2017-07-27 08:23] LABS: BASOPHILS # (AUTO) 0.1 10^3/uL (0.0-0.1); BASOPHILS % (AUTO) 0.3 %; EOSINOPHILS # (AUTO) 0.1 10^3/uL (0.0-0.7); EOSINOPHILS % (AUTO) 0.7 %; HGB - HEMOGLOBIN 10.9 g/dL (12.0-16.0); LYMPHOCYTES # (AUTO) 0.8 10^3/uL (1.5-3.5); LYMPHOCYTES % (AUTO) 4.2 %; MEAN CORPUSCULAR HEMOGLOBIN 29.2 pg (27.0-31.0); MEAN CORPUSCULAR HGB CONC 32.8 g/dL (32.0-36.0); MEAN CORPUSCULAR VOLUME 89.2 fL (81.0-99.0); MEAN PLATELET VOLUME 8.1 fL (7.9-10.8); MONOCYTES # (AUTO) 2.2 10^3/uL (0.0-1.0); MONOCYTES % (AUTO) 12.2 %; NEUTROPHILS # (AUTO) 14.9 10^3/uL (1.5-6.6); NEUTROPHILS % (AUTO) 82.6 %; PLT - PLATELET COUNT 176 10^3/uL (130-450); RED BLOOD COUNT 3.72 10^6/uL (4.20-5.40); RED CELL DISTRIBUTION WIDTH 13.3 % (12.0-15.0); WHITE BLOOD COUNT 18.1 x10^3/uL (4.8-10.8)
[2017-07-27 08:38] LABS: RBC MORPHOLOGY (MULTIPLE) 1+ ANISOCYTOSIS (NORMAL)
[2017-07-27 08:44] LABS: ALBUMIN 2.5 g/dL (3.2-5.5); ALBUMIN/GLOBULIN RATIO 0.8 (1.0-2.2); BILIRUBIN,TOTAL 0.7 mg/dL (0.2-1.0); CALCIUM 8.5 mg/dL (8.5-10.3); CREATININE 0.7 mg/dL (0.4-1.0); TOTAL PROTEIN 5.7 g/dL (6.7-8.2)
[2017-07-27] MEDS: BISACODYL 10 MG SUPP PR SCH (09:55)
[2017-07-27] MEDS ORDERED: FUROSEMIDE 20 MG/2 ML VIAL IVP ONE (10:12)
[2017-07-27] MEDS ORDERED: BISACODYL 10 MG SUPP PR PRN (10:13)
[2017-07-27] MEDS: POLYETHYLENE GLYCOL 3350 17 GM PACKET PO SCH (10:42)
[2017-07-27] MEDS: ATORVASTATIN 40 MG TABLET PO SCH (10:54)
[2017-07-27] MEDS: ENOXAPARIN 40 MG/0.4 ML SYRINGE SUBQ SCH (10:54)
[2017-07-27] MEDS: SODIUM CHLORIDE FLUSH 0.9% 10 ML SYRINGE IVP PRN (10:56)
[2017-07-27] MEDS: VANCOMYCIN INJ 1 GM in SODIUM CHLORIDE 0.9% 250 ML IV SCH (14:24)
[2017-07-27] MEDS ORDERED: LORazepam 2 MG/ML VIAL IVP PRN (18:22)
[2017-07-27] MEDS ORDERED: SODIUM CHLORIDE FLUSH 0.9% 10 ML SYRINGE ONE (19:24)
--- NOTE | 2017-07-27 19:24 | XRAY Preliminary Report ---
Exam: XR CHEST 2 VIEW X-RAY IMPRESSION: Acute on chronic lung disease consisting of small left posterior basilar infiltrate and e ffusion. [facility] SITE ID: [id number]
--- NOTE | 2017-07-27 19:30 | XRAY Report ---
EXAM: CHEST RADIOGRAPHY EXAM DATE: 07/27/2017 06:34 PM. CLINICAL HISTORY: Shortness of breath, hypoxia. COMPARISON: None. TECHNIQUE: 2 views. FINDINGS: Lungs/Pleura: Emphysematous changes. 3 mm calcified granuloma right lung base. New airspace infiltrates left posterior lung base. New mild blunting left lateral costophrenic angle. No pneumothorax. Mediastinum: Heart and mediastinal contours are unremarkable. Other: None. IMPRESSION: Acute on chronic lung disease consisting of small left posterior basilar infiltrate and e ffusion. [facility] Referring Provider Line: [phone] SITE ID: [id number]
[2017-07-27] MEDS: cefTRIAXone 1 GM in SODIUM CHLORIDE 0.9% MINIBAG 100 ML IV SCH (20:33)
[2017-07-28] MEDS: SODIUM CHLORIDE FLUSH 0.9% 10 ML SYRINGE IVP SCH ×3 (06:17→21:12)
[2017-07-28] MEDS: FUROSEMIDE 40 MG/4 ML VIAL IVP SCH ×2 (06:17→10:40)
[2017-07-28 06:58] LABS: BASOPHILS % (AUTO) 0.7 %; EOSINOPHILS % (AUTO) 1.1 %; HGB - HEMOGLOBIN 11.6 g/dL (12.0-16.0); MEAN CORPUSCULAR HEMOGLOBIN 28.8 pg (27.0-31.0); MEAN CORPUSCULAR HGB CONC 31.6 g/dL (32.0-36.0); MEAN CORPUSCULAR VOLUME 91.2 fL (81.0-99.0); MEAN PLATELET VOLUME 8.5 fL (7.9-10.8); MONOCYTES % (AUTO) 11.1 %; NEUTROPHILS % (AUTO) 79.1 %; PLT - PLATELET COUNT 228 10^3/uL (130-450); RED BLOOD COUNT 4.01 10^6/uL (4.20-5.40); RED CELL DISTRIBUTION WIDTH 13.3 % (12.0-15.0); WHITE BLOOD COUNT 14.3 x10^3/uL (4.8-10.8)
[2017-07-28 07:15] LABS: ABNORMAL LYMPHS % (MANUAL) 0 %
[2017-07-28 07:19] LABS: BAND NEUTROPHILS % (MANUAL) 4 %; DIFFERENTIAL COMMENT MANUAL DIFFERENTIAL; EOSINOPHILS # (MANUAL) 0.1 10^3/uL (0-0.7); LYMPHOCYTES # (MANUAL) 1.9 10^3/uL (1.5-3.5); LYMPHOCYTES % (MANUAL) 13 %; MONOCYTES # (MANUAL) 1.4 10^3/uL (0.0-1.0); NEUTROPHILS # (MANUAL) 10.9 10^3/uL (1.5-6.6); NEUTROPHILS % (MANUAL) 72 %; PLATELET ESTIMATE, MANUAL NORMAL (130-450,000) (NORMAL); RBC MORPHOLOGY (MULTIPLE) NORMAL APPEARANCE (NORMAL)
[2017-07-28 07:20] LABS: ALBUMIN 2.6 g/dL (3.2-5.5); ALBUMIN/GLOBULIN RATIO 0.8 (1.0-2.2); BILIRUBIN,TOTAL 0.5 mg/dL (0.2-1.0); CALCIUM 8.9 mg/dL (8.5-10.3); CREATININE 0.8 mg/dL (0.4-1.0); MAGNESIUM 1.6 mg/dL (1.7-2.8); PHOSPHORUS 3.6 mg/dL (2.5-4.6)
[2017-07-28] MEDS: IPRATROPIUM 0.2 MG/ML NEB INH SCH ×4 (07:30→21:50)
[2017-07-28] MEDS: POLYETHYLENE GLYCOL 3350 17 GM PACKET PO SCH (10:31)
[2017-07-28] MEDS: ATORVASTATIN 40 MG TABLET PO SCH (10:32)
[2017-07-28] MEDS: MAGNESIUM OXIDE 400 MG TABLET PO SCH ×2 (10:35→21:12)
[2017-07-28] MEDS: POTASSIUM CHLORIDE 10 MEQ CAPSULE PO SCH ×3 (10:35→21:12)
[2017-07-28] MEDS: ENOXAPARIN 40 MG/0.4 ML SYRINGE SUBQ SCH (10:37)
[2017-07-28] MEDS: SODIUM CHLORIDE FLUSH 0.9% 10 ML SYRINGE IVP PRN (10:40)
[2017-07-28] MEDS ORDERED: TIOTROPIUM INHALER INH SCH (11:00)
--- NOTE | 2017-07-28 12:10 | PROVIDER PROGRESS NOTE ---
Subjective - Prog Note Date Prog Note Date: 07/28/17 Prog Note Time: 12:07 - Subjective Pt reports feeling: No change Subjective: Melody admits to feeling much better today and believes she is improving. She denies SOB, chest pain, N/V or a new cough. She admits to having a productive cough and was able to give a sample for testing. She states that her daughter is supposed to visit later this evening. Current Medications - Current Medications Current Medications: Active Medications Acetaminophen (Tylenol) 650 mg PO Q4HR PRN PRN Reason: Pain 1 to 4 Last Admin: 07/25/17 23:43 Dose: 650 mg Atorvastatin Calcium (Lipitor) 40 mg PO DAILY [facility] Last Admin: 07/28/17 10:32 Dose: 40 mg Bisacodyl (Dulcolax Supp) 10 mg SC DAILY PRN PRN Reason: Constipation Enoxaparin Sodium (Lovenox) 40 mg SUBQ DAILY [facility] Last Admin: 07/28/17 10:37 Dose: 40 mg Furosemide (Lasix Inj 40 Mg Vial) 40 mg IVP DAILY [facility] Last Admin: 07/28/17 10:40 Dose: 40 mg Levofloxacin (Levaquin 750 Mg/150 Ml) 750 mg in 150 mls @ 100 mls/hr IV Q48H [facility] Last Infusion: 07/27/17 00:15 Dose: Infused Ceftriaxone Sodium 1 gm/ (Sodium Chloride) 100 mls @ 200 mls/hr IV Q24H [facility] Last Infusion: 07/27/17 21:05 Dose: Infused Vancomycin HCl 1 gm/ Sodium (Chloride) 250 mls @ 167 mls/hr IV Q24H [facility] Last Infusion: 07/27/17 15:54 Dose: Infused Ipratropium [place] (Atrovent) 0.5 mg INH RTQID [facility] Levalbuterol HCl (Xopenex) 1.25 mg INH Q4H PRN PRN Reason: Shortness of Air/Wheezing Lorazepam (Ativan Inj (Vial)) 0.5 mg IVP Q2H PRN PRN Reason: Anxiety Last Admin: 07/27/17 18:37 Dose: 0.5 mg Magnesium Oxide (Mag Ox) 400 mg PO BID [facility] Last Admin: 07/28/17 10:35 Dose: 400 mg Ondansetron HCl (Zofran Odt) 4 mg TL Q4HR PRN PRN Reason: Nausea / Vomiting Last Admin: 07/27/17 08:18 Dose: 4 mg Polyethylene Glycol (Miralax) 17 gm PO DAILY [facility] Last Admin: 07/28/17 10:31 Dose: 17 gm Potassium Chloride (Micro-K) 10 meq PO TID [facility] Last Admin: 07/28/17 10:35 Dose: 10 meq Prochlorperazine Edisylate (Compazine Inj) 10 mg IVP Q6H PRN PRN Reason: Nausea / Vomiting Last Admin: 07/27/17 17:56 Dose: 10 mg Sertraline HCl (Zoloft) 50 mg PO DAILY [facility] Sodium Chloride (Normal Saline Flush 0.9%) 10 ml IVP PRN PRN PRN Reason: NEEDED PER PROVIDER ORDERS Last Admin: 07/28/17 10:40 Dose: 10 ml Sodium Chloride (Normal Saline Flush 0.9%) 10 ml IVP Q8HR [facility] Last Admin: 07/28/17 06:17 Dose: 10 ml Throat Lozenges (Cepacol) 1 lozenge MM Q2HR PRN PRN Reason: Throat pain Last Admin: 07/27/17 05:56 Dose: 1 lozenge Acetaminophen [Tylenol] 1,300 mg PO Q8HR 10/20/15 Hydrochlorothiazide 25 mg PO DAILY 10/20/15 Tiotropium [place] [Spiriva] 1 puffs INH DAILY 10/20/15 Atorvastatin [Lipitor] 10 mg PO QPM 07/26/17 Omeprazole [PriLOSEC] 20 mg PO QDAC 07/26/17 Potassium Chloride [Klor-Con M20] 20 meq PO DAILYWM 07/26/17 Sertraline [Zoloft] 50 mg PO DAILY 07/26/17 Objective - Vital Signs/Intake & Output Reviewed Vital Signs: Yes Vital Signs: Vital Signs x48h Temp Pulse Pulse Resp BP Pulse Ox 07/28/17 08:43 36.8 C 63 20 153/57 H 94 07/28/17 07:30 67 18 Intake & Output: Intake & Output 07/25/17 07/26/17 07/27/17 07/28/17 23:59 23:59 23:59 23:59 Intake Total 1100 4031.166 2215 120 Output Total 150 1350 1 Balance 1100 3881.166 865 119 - Objective General Appearance: positive: Moderate distress, Anxious Eyes Bilateral: positive: Normal inspection Eyes: OU Conjunctivae pale, OU Scleral icterus ENT: positive: ENT inspection nml, Pharynx nml, Dry mucous membranes Neck: positive: Nml inspection, Thyroid nml, No JVD, Trachea midline, Stiff neck Respiratory: positive: Chest non-tender, No respiratory distress, Wheezes, Other (crackles in low bases-bilaterally.) Cardiovascular: positive: No gallop, Irregularly irregular, Systolic murmur Peripheral Pulses: 2+ Radial (R), 2+ Radial (L) Abdomen: positive: Non-tender, Nml bowel sounds, Hepatomegaly Back: positive: Nml inspection Skin: positive: No rash, Warm, Dry, Pallor Extremities: positive: Non-tender, Full ROM, Pedal edema Neurologic/Psychiatric: positive: Disoriented to time, Weakness, Sensory loss, Depressed mood/affect Reflexes: Bicep (R): 1+, Bicep (L): 1+ - Lab Results Fish Bones: 07/28/17 06:32 07/28/17 06:32 Other Labs: Lab Results x24hrs 07/28/17 07/28/17 07/28/17 Range/Units 06:32 06:32 06:32 WBC 14.3 H (4.8-10.8) x10^3/uL RBC 4.01 L (4.20-5.40) 10^6/uL Hgb 11.6 L (12.0-16.0) g/dL Hct 36.6 L (37.0-47.0) % MCV 91.2 (81.0-99.0) fL MCH 28.8 (27.0-31.0) pg MCHC 31.6 L (32.0-36.0) g/dL RDW 13.3 (12.0-15.0) % Plt Count 228 (130-450) 10^3/uL MPV 8.5 (7.9-10.8) fL Neut # Not Reportable Lymph # Not Reportable [place]anner # Not Reportable Eos # Not Reportable Baso # Not Reportable Absolute Nucleated RBC Not Reportable Total Counted 100 Band Neuts % (Manual) 4 (0 - 10) % Abnorm Lymph % (Manual) 0 % Nucleated RBC % Not Reportable Neutrophils # (Manual) 10.9 H (1.5-6.6) 10^3/uL Lymphocytes # (Manual) 1.9 (1.5-3.5) 10^3/uL Monocytes # (Manual) 1.4 H (0.0-1.0) 10^3/uL Eosinophils # (Manual) 0.1 (0-0.7) 10^3/uL Basophils # (Manual) 0.0 (0-0.1) 10^3/uL Differential Comment MANUAL DIFFERENTIAL Platelet Estimate NORMAL (130-450,000) (NORMAL) RBC Morph Micro Appear NORMAL APPEARANCE (NORMAL) Sodium 136 (135-145) mmol/L Potassium 3.3 L (3.5-5.0) mmol/L Chloride 96 L (101-111) mmol/L Carbon Dioxide 27 (21-32) mmol/L Anion Gap 13.0 (6-13) BUN 17 (6-20) mg/dL Creatinine 0.8 (0.4-1.0) mg/dL Estimated GFR (MDRD) 68 L (>89) Glucose 105 H (70-100) mg/dL Lactic Acid 0.7 (0.5-2.2) mmol/L Calcium 8.9 (8.5-10.3) mg/dL Phosphorus 3.6 (2.5-4.6) mg/dL Magnesium 1.6 L (1.7-2.8) mg/dL Total Bilirubin 0.5 (0.2-1.0) mg/dL AST 17 (10-42) IU/L ALT 18 (10-60) IU/L Alkaline Phosphatase 88 (42-121) IU/L Total Protein 6.0 L (6.7-8.2) g/dL Albumin 2.6 L (3.2-5.5) g/dL Globulin 3.4 (2.1-4.2) g/dL Albumin/Globulin Ratio 0.8 L (1.0-2.2) - Diagnostic Imaging Diagnostic Imaging Results: positive: Final report reviewed Diagnostic Imaging Comments: chest x-ray, 2-view 07/27/17: FINDINGS: Lungs/Pleura: Emphysematous changes. 3 mm calcified granuloma right lung base. New airspace infiltrates left posterior lung base. New mild blunting left lateral costophrenic angle. No pneumothorax. Mediastinum: Heart and mediastinal contours are unremarkable. Other: None. IMPRESSION: Acute on chronic lung disease consisting of small left posterior basilar infiltrate and effusion. Assessment/Plan - Problem List (1) Pneumonia Impression: According to recent chest x-ray, there are small left infiltrates in patient's low base. Upon exam, patient remains with slight crackles. Plan: Continue nebulizers, oxygen, and IV antibiotics. Sputum sample obtained and is pending. (2) Sepsis Impression: Blood cultures were obtained in the ED at the time of admission and are NGTD. Patient was below her normal range of blood pressure, and tachycardic. Patient has been afebrile. Plan: Give IVFs, IV antibiotics and wait for blood cultures to result. Qualifiers: Sepsis type: sepsis due to unspecified organism Qualified Code(s): A41.9 - Sepsis, unspecified organism (3) Urinary tract infection Impression: Patient has history of urinary incontinence, and most recently had a fall without injury out of a low-bed at [facility]. She has not had signs of fevers/chills or hematuria. Per daughter, patient has been more confused. Urine collected in ED shows + occult, + protein, and culture is indicated, NGTD so far. Plan: Continue IV antibiotic coverage and patient remains with Pure wick to aid with urinary incontinence. Qualifiers: Urinary tract infection type: acute pyelonephritis Qualified Code(s): N10 - Acute pyelonephritis (4) COPD (chronic obstructive pulmonary disease) Impression: Patient has a history of oxygen dependence for at least the past 4 years per daughter's report. She is symptom controlled with Spiriva at home. Plan: Continue on LABA, LAMA and continuous oxygen. Qualifiers: COPD type: COPD with acute lower respiratory infection Qualified Code(s): J44.0 - Chronic obstructive pulmonary disease with acute lower respiratory infection (5) Confusion Impression: DaughterSally notes that over the past week prior to admission, she has noticed that her mother has had a decline in her memory. Normally, her mother is very sharp and can recall recent events. Today patient is noted to be much less confused and agitated. Plan: Monitor mental status and encourage continuity of care with nursing staff. (6) Hyponatremia Impression: Likely due to dehydration. Mucous membranes were noted to be dry on exam. Sodium was 133 upon admission that improved to 135 today. IVFs now discontinued. Plan: Give ice chips as tolerated. Continue to monitor labs. (7) Nausea Impression: Patient's primary complaint was nausea on previous days, but today denies. She was happily sitting in her chair and offered no complaints. Patient found relief after moving her bowels and ambulating in the halls. Plan: Continue medical management and lorazepam IV added for continued complaints.
[2017-07-28] MEDS: LEVALBUTEROL 1.25 MG/3 ML NEB INH PRN ×2 (13:10→21:50)
[2017-07-28] MEDS: VANCOMYCIN INJ 1 GM in SODIUM CHLORIDE 0.9% 250 ML IV SCH (14:25)
[2017-07-28] MEDS: cefTRIAXone 1 GM in SODIUM CHLORIDE 0.9% MINIBAG 100 ML IV SCH (20:11)
[2017-07-28] MEDS: BENZOCAINE/MENTHOL LOZENGE MM PRN (21:12)
[2017-07-28] MEDS: SERTRALINE 50 MG TABLET PO SCH (21:13)
[2017-07-28] MEDS: levoFLOXacin 750 MG/150 ML 750 MG/150 ML BAG IV SCH (21:16)
[2017-07-28] MEDS ORDERED: SERTRALINE 50 MG TABLET PO SCH (23:00)
[2017-07-29] MEDS: BENZOCAINE/MENTHOL LOZENGE MM PRN (02:24)
[2017-07-29] MEDS: POTASSIUM CHLORIDE 10 MEQ CAPSULE PO SCH (05:42)
[2017-07-29] MEDS: SODIUM CHLORIDE FLUSH 0.9% 10 ML SYRINGE IVP SCH (05:43)
[2017-07-29] MEDS: IPRATROPIUM 0.2 MG/ML NEB INH SCH ×2 (07:30→11:15)
[2017-07-29] MEDS: LEVALBUTEROL 1.25 MG/3 ML NEB INH PRN (07:30)
[2017-07-29 08:52] VITALS: BP 140/72
--- NOTE | 2017-07-29 09:05 | Discharge Plan ---
Discharge Plan for SNF / [facility] - DC Plan and Transition Orders Disposition: 03 SNF DC/Xfer Condition: Good SNF Transition Orders: Admit to: [facility] under the care of Paris Jimenez Discharge Diagnosis: pneumonia, UTI, COPD, confusion, electrolyte abnormality, nausea, chronic constipation. Medicare Certification: I certify that Post Hospital care home care is medically necessary on a continuing basis for any of the conditions for which she/he is receiving care during hospitalization. Notify PCP of admission and forward orders to primary provider for signature. Weight on admission. Call PCP immediately if weight increases by 10 pounds or if patient develops dyspnea, chest pain/tightness or edema. House Bowel Program: yes If no BM after 2 days, nurse may give M.O.M. 30ml PO PRN and /or ducolax Supp 1 NV and /or AIMEE 250mg P.O., and/or senna 1-2 tabs PO. On day 3 nurse may give repeat above order until residents constipation is resolved. Immunizations:Annual Influenza Vaccine: yes. (between Mar 09 and October 06. ) Unless allergy or already given Two-Step PPD: yes per [facility] [id number] or appropriate documentation of approved exceptions Treatments & Other Orders: Complete entire antibiotic course. Do not tell the patient that she is being treated for pneumonia, as this is upsetting to her, rather use "your infection" as an explanation to treatment. Oxygen Orders: 1-4L nasal cannula to keep oxygen saturation greater than 90%. Continue previously prescribed long-acting inhaler and rinse mouth after use. Lab Tests or X-Rays Orders: Not indicated. Orthopedic Orders: N/A. Medications: PLEASE REFER TO THE DISCHARGE MEDICATION LIST. LOW DOSE MODERATE DOSE MODERATE/HIGH DOSE HIGH DOSE GB UNITS GB UNITS GB UNITS GB UNITS 61-140 0 UNITS 61-140 0 UNITS 61-140 0 UNITS 61-140 0 UNITS 141-175 1 UNITS 141-175 1 UNITS 141-175 2 UNITS 141-175 3 UNITS 176-225 2 UNITS 176-225 3 UNITS 176-225 4 UNITS 176-225 5 UNITS 226-275 3 UNITS 226-275 5 UNITS 226-275 6 UNITS 226-275 7 UNITS 276-325 4 UNITS 276-325 7 UNITS 276-325 8 UNITS 276-325 9 UNITS 326-375 5 UNITS 326-375 9 UNITS 326-375 10 UNITS 326-375 11 UNITS >375 CONTACT MD >375 CONTACT MD >375 CONTACT MD >375 CONTACT MD GB Units 61-140 Units 141-175 Units 176-225 Units 226-275 Units 276-325 Units 326-375 Units >375 Contact MD Allergies and Adverse Reactions: Allergies Allergy/AdvReac Type Severity Reaction Status Date / Time tetracycline Allergy Rash Verified 10/20/15 07:18 - Medications New Prescriptions: levoFLOXacin [Levofloxacin] 500 mg PO DAILY 7 Days #10.5 tablet Saccharomyces Boulardii [Florastor] 250 mg PO BID 14 Days #28 capsule - Diet Type: Geriatric Texture: Regular Liquids: Thin May have monthly special meal: Yes - Therapies | Activity Therapy: Evaluation | Treat if indicated: Speech, PT, OT Rehabilitation Potential: Maximize functional status, Maintain present ADL Functional Activity: No Restrictions Weight Bearing: Full Weight Assistance Devices: Walker Additional Instructions: Continue care with frequent toilet schedule using walker and assistance.
[2017-07-29] MEDS: ENOXAPARIN 40 MG/0.4 ML SYRINGE SUBQ SCH (09:53)
[2017-07-29] MEDS: FUROSEMIDE 40 MG/4 ML VIAL IVP SCH (09:53)
[2017-07-29] MEDS: SERTRALINE 50 MG TABLET PO SCH (09:53)
[2017-07-29] MEDS: MAGNESIUM OXIDE 400 MG TABLET PO SCH (09:53)
[2017-07-29] MEDS: ATORVASTATIN 40 MG TABLET PO SCH (09:53)
[2017-07-29] MEDS: POLYETHYLENE GLYCOL 3350 17 GM PACKET PO SCH (09:53)
--- NOTE | 2017-07-29 10:38 | DISCHARGE SUMMARY ---
Discharge Summary Admit Date: 07/25/17 Discharge Date: 07/29/17 Discharging Provider: SHERIDAN Gallardo Primary Care Provider: Paris Jimenez Code Status: Do Not Attempt Resuscitation Condition at Discharge: Good Discharge Disposition: 03 SNF DC/Xfer Discharge Facility Name: [facility] - DIAGNOSES Admission Diagnoses: Sepsis (A41.9) UTI (urinary tract infection) (N39.0) COPD (chronic obstructive pulmonary disease) (J44.9) Confusion (R41.0) Hyponatremia (E87.1) Discharge Diagnoses with Status of Each Condition: Sepsis (A41.9) UTI (urinary tract infection) (N39.0) COPD (chronic obstructive pulmonary disease) (J44.9) Confusion (R41.0) Hyponatremia (E87.1) Nausea (R11.0) Pneumonia (J18.9) - HPI History of Present Illness: Melody Rivera is an 89-year old white female with a past medical history of hypertension, hyperlipidemia, COPD, GERD, chronic back pain, and cataracts. She states that she was weak and fell this morning. Family members noted that she was running a low grade temp and brought her to Urgent care where a UA was completed and was positive for a UTI. She was given a prescription for out patient antibiotics which were not picked up and given. Last evening she had a small amount of blood-tinged sputum, so her family brought her to our ED. The patient is a poor historian, but can remember a few details. The patient states she currently only has her chronic hip and back pain, with no other complaints. She denies shortness of breath, fever, chills. She admits to dysuria, and being compliant with her medications. She was found to be hypotensive in the ER and will be admitted for further work up of urosepsis. - HOSPITAL COURSE Hospital Course: The following problems/diagnoses were prevalent during this hospital stay: Pneumonia: According to recent chest x-ray, there are small left infiltrates in patient's low base. Upon exam, patient remains with slight crackles and are likely chronic given oxygen use/pulmonary hypertension. Patient was continued on nebulizers, oxygen, and IV antibiotics. Sputum sample obtained and final is pending. This pathogen will likely be covered with an additional dose of levofloxacin for 7 days PO. A probiotic will be prescribed to be given and extending 7 days post antibiotics. Sepsis: Blood cultures were obtained in the ED at the time of admission and are NGTD. Patient was below her normal range of blood pressure, and tachycardic. Patient has been afebrile. Patient was given IVFs, IV antibiotics and wait for blood cultures remained no growth to date for this hospital stay. UTI: Patient has history of urinary incontinence, and most recently had a fall without injury out of a low-bed at [facility]. She has not had signs of fevers/chills or hematuria. Per daughter, patient has been more confused. Urine collected in ED shows + occult, + protein, and culture is indicated, NGTD so far. Patient was continued on IV antibiotic coverage and patient remains with Pure wick to aid with urinary incontinence. Patient will receive an additional 7 days of PO antibiotics and should be on a regular toileting schedule. COPD: Patient has a history of oxygen dependence for at least the past 4 years per daughter's report. She is symptom controlled with Spiriva at home. Patient was continued on LABA, LAMA and continuous oxygen. Spiriva resumed at the time of discharge. Confusion: DaughterSally notes that over the past week prior to admission, she has noticed that her mother has had a decline in her memory. Normally, her mother is very sharp and can recall recent events. Today patient is noted to be much less confused and agitated. Patient's mental status was continuously monitored and she was given continuity of care with nursing staff. Daughter and caregiver were both very helpful during her stay. Hyponatremia: Likely due to dehydration. Mucous membranes were noted to be dry on exam. Sodium was 133 upon admission that improved to normal values at the time of discharge. IVFs were given, but soon discontinued due to potential for fluid overload. Patient was given ice chips as tolerated and her labs were monitored. Nausea: Patient's primary complaint was nausea for a few days of her stay, but subsided. Patient found relief after moving her bowels and ambulating in the halls. This resolved at the time of discharge. Disposition: Patient was discharged to [facility] on her usual amount of home oxygen via nasal cannula. Daughter called by me and updated. She picked up the antibiotic previous to discharge so her mother could continue treatment. - ALLERGIES Allergies/Adverse Reactions: Allergies Allergy/AdvReac Type Severity Reaction Status Date / Time tetracycline Allergy Rash Verified 10/20/15 07:18 - MEDICATIONS Home Medications: Ambulatory Orders Medication Instructions Recorded Confirmed Acetaminophen [Tylenol] 1,300 mg PO Q8HR 10/20/15 07/26/17 Hydrochlorothiazide 25 mg PO DAILY 10/20/15 07/26/17 Tiotropium [place] [Spiriva] 1 puffs INH DAILY 10/20/15 07/26/17 Atorvastatin [Lipitor] 10 mg PO QPM 07/26/17 07/26/17 Omeprazole [PriLOSEC] 20 mg PO QDAC 07/26/17 07/26/17 Potassium Chloride [Klor-Con M20] 20 meq PO DAILYWM 07/26/17 07/26/17 Sertraline [Zoloft] 50 mg PO DAILY 07/26/17 07/26/17 Saccharomyces Boulardii [Florastor] 250 mg PO BID 14 Days #28 capsule 07/29/17 levoFLOXacin [Levofloxacin] 500 mg PO DAILY 7 Days #10.5 tablet 07/29/17 - PHYSICAL EXAM AT DISCHARGE General Appearance: positive: No acute distress, Alert Eyes Bilateral: positive: Normal inspection ENT: positive: ENT inspection nml, No signs of dehydration Neck: positive: Nml inspection, Thyroid nml, No JVD, Stiff neck Respiratory: positive: Chest non-tender, No respiratory distress, Other (slight crackles) Cardiovascular: positive: Irregularly irregular, Systolic murmur, Gallop/S3 Peripheral Pulses: positive: 1+ Abdomen: positive: Non-tender, No organomegaly, Nml bowel sounds, No distention , Other (rounded, soft) Back: positive: Nml inspection Skin: positive: No rash, Warm, Dry, Pallor Extremities: positive: Non-tender, Full ROM, Nml appearance, No pedal edema, Joint swelling Neurologic/Psychiatric: positive: CN's nml (2-12), Disoriented to time, Weakness , Depressed mood/affect Reflexes: Bicep (R): 1+, Bicep (L): 1+ - LABS Result Diagrams: 07/28/17 06:32 07/28/17 06:32 - DIAGNOSTIC IMAGING Diagnostic Imaging Results: Final report reviewed Diagnostic Imaging Results Comments: chest x-ray, 2-view 07/27/17: FINDINGS: Lungs/Pleura: Emphysematous changes. 3 mm calcified granuloma right lung base. New airspace infiltrates left posterior lung base. New mild blunting left lateral costophrenic angle. No pneumothorax. Mediastinum: Heart and mediastinal contours are unremarkable. Other: None. IMPRESSION: Acute on chronic lung disease consisting of small left posterior basilar infiltrate and effusion. - FOLLOW UP Follow Up: As per [facility]. - TIME SPENT Time Spent in Discharge (Minutes): 45
[2017-07-29] MEDS ORDERED: POTASSIUM CHLORIDE 10 MEQ CAPSULE PO SCH (13:00)
== END 2017-07-29 15:05 | disposition home or self-care (01) | DRG 871 ==
LOC: ED 17:49 → MS2 21:31
PROVIDERS: ADMIT Internal Medicine; ATTEND Nurse Practitioner
DX: A41.9 Sepsis, unspecified organism (principal); J18.9 Pneumonia, unspecified organism; N10 Acute pyelonephritis; J44.9 Chronic obstructive pulmonary disease, unspecified; E87.1 Hypo-osmolality and hyponatremia; J44.0 Chronic obstructive pulmonary disease with (acute) lower respiratory infection; E86.0 Dehydration; I10 Essential (primary) hypertension; E78.5 Hyperlipidemia, unspecified; K21.9 Gastro-esophageal reflux disease without esophagitis; I27.20 Pulmonary hypertension, unspecified; R31.29 Other microscopic hematuria; G89.29 Other chronic pain; M54.9 Dorsalgia, unspecified; M25.559 Pain in unspecified hip; Z99.81 Dependence on supplemental oxygen; Z91.81 History of falling; Z66 Do not resuscitate
CPT/HCPCS: 36415; 71046; 80048; 80053; 81001; 81003; 83605; 83690; 83735; 84100; 85025; 85610; 87040; 87070; 87086; 87205; 93005; 94640; 96365; 96372; 99283; 99285

== ENCOUNTER 2017-08-02 14:56 | Emergency (ER) | payer MEDICARE, OTHER ==
--- NOTE | 2017-08-02 15:54 | ED Physician Documentation ---
PD HPI HEAD INJURY - Stated complaint Stated Complaint: GLF/BLACK EYE - Chief complaint Chief Complaint: General - History obtained from History obtained from: Patient - History of Present Illness Mechanism of head injury: Fell (she was found this morning by caregivers to have bruising and swelling right eyebrow and upper eyelid. No known injury. Patient not remembering what happened. Daughter said the patient was a little off blaance the past few days and some memory problems since getting out of hospital. Was in [facility] for Urosepsis and pneumonia for 2 days. Is still on abx.) Where head injury occurred: Home Timing - onset: Last night Location of injury: Right, Front Associated symptoms: No: Nausea / vomiting, Neck pain Symptoms worsen with: Palpation Contributing factors: No: Anticoagulated, Intoxicated Similar symptoms before: Has not had sx before Recently seen: Emergency Dept, Admitted Review of Systems Constitutional: denies: Fever Nose: denies: Rhinorrhea / runny nose, Congestion Throat: denies: Sore throat Cardiac: denies: Chest pain / pressure Respiratory: reports: Cough (mild). denies: Dyspnea Skin: denies: Abrasion (s), Laceration (s) Musculoskeletal: denies: Neck pain, Back pain Neurologic: reports: Confused (mild the past few days). 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 HEENT: Cataracts - Present Medications Home Medications: Ambulatory Orders Medication Instructions Recorded Confirmed Acetaminophen [Tylenol] 1,300 mg PO Q8HR 10/20/15 08/02/17 Hydrochlorothiazide 25 mg PO DAILY 10/20/15 08/02/17 Tiotropium [place] [Spiriva] 1 puffs INH DAILY 10/20/15 08/02/17 Atorvastatin [Lipitor] 10 mg PO QPM 07/26/17 08/02/17 Omeprazole [PriLOSEC] 20 mg PO QDAC 07/26/17 08/02/17 Potassium Chloride [Klor-Con M20] 20 meq PO DAILYWM 07/26/17 08/02/17 Sertraline [Zoloft] 50 mg PO DAILY 07/26/17 08/02/17 Saccharomyces Boulardii [Florastor] 250 mg PO BID 14 Days #28 capsule 07/29/17 08/02/17 levoFLOXacin [Levofloxacin] 500 mg PO DAILY 7 Days #10.5 tablet 07/29/17 Cephalexin [Keflex] 500 mg PO TID #15 capsule 08/02/17 - Allergies Allergies/Adverse Reactions: Allergies Allergy/AdvReac Type Severity Reaction Status Date / Time tetracycline Allergy Rash Verified 08/02/17 15:11 - Social History Does the pt smoke?: No Smoking Status: Never smoker Does the pt drink ETOH?: No Does the pt have substance abuse?: No - Immunizations Immunizations are current?: Yes - POLST Patient has POLST: No PD ED PE NORMAL - Vitals Vital signs reviewed: Yes - General General: Alert and oriented X 3, No acute distress, Well developed/nourished, Other (swelling with abrasion lateral eyebrow and bruising without swelling upper eyelid. ) - HEENT HEENT: PERRL, EOMI, Pharynx benign, Dentition benign - Neck Neck: Supple, no meningeal sign, No adenopathy - Cardiac Cardiac: RRR, No murmur - Respiratory Respiratory: Clear bilaterally - Abdomen Abdomen: Soft, Non tender - Back Back: No CVA TTP, No spinal TTP - Derm Derm: Normal color, Warm and dry - Extremities Extremities: Other (right shoulder laterally with some bruising but FROM and no bony tenderness. Right elbow laterally with faint bruising but good ROM and no effusion. 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, No motor deficit, No sensory deficit, Normal speech Eye Opening: Spontaneous Motor: Obeys Commands Verbal: Oriented GCS Score: 15 - Psych Psych: Normal mood Results - Vitals Vitals: Vital Signs - 24 hr 08/02/17 08/02/17 15:07 18:16 Temperature 36.3 C L 36.7 C Heart Rate 78 84 Respiratory 18 16 Rate Blood Pressure 118/51 L 137/61 H O2 Saturation 96 97 Oxygen O2 Source Nasal cannula - Labs Labs: Laboratory Tests 08/02/17 08/02/17 16:40 16:40 WBC 11.7 H RBC 4.28 Hgb 12.2 Hct 37.9 MCV 88.4 MCH 28.4 MCHC 32.1 RDW 13.4 Plt Count 357 MPV 7.0 L Neut # 8.5 H Lymph # 1.5 [place] # 1.4 H Eos # 0.2 Baso # 0.1 Absolute Nucleated RBC 0.01 Nucleated RBC % 0.1 Sodium 136 Potassium 3.6 Chloride 98 L Carbon Dioxide 26 Anion Gap 12.0 BUN 21 H Creatinine 0.7 Estimated GFR (MDRD) 79 L Glucose 133 H Calcium 8.5 Total Bilirubin 0.5 AST 15 ALT 14 Alkaline Phosphatase 97 Total Protein 6.5 L Albumin 3.0 L Globulin 3.5 Albumin/Globulin Ratio 0.9 L Lipase 18 L - Rads (name of study) head/orbit CT Radiology: Prelim report reviewed (no ICH, no fractures. preseptal swelling noted. No orbital lesions. ) PD MEDICAL DECISION MAKING - ED course Complexity details: reviewed old records, reviewed results, considered differential (Having some balance problem and forgetful the past few days per daughter. I would consider residual effect of significant infectio/sepsis, though could be Levaquin side effects. Review of her cultures shows no growth on urine and just small infiltrate on CXR. So not really having to target UTI ( which was thought to be cause of her sepsis). Can change to Keflex for more resp coverage and would also cover urine as well. Lung exam is good here. So might not need abx at all. ), d/w patient, d/w family (daughter) Departure - Departure Disposition: 01 Home, Self Care Clinical Impression: Balance problem Accidental fall Qualifiers: Encounter type: initial encounter Qualified Code(s): W19.XXXA - Unspecified fall, initial encounter Periorbital contusion of right eye Qualifiers: Encounter type: initial encounter Qualified Code(s): S05.11XA - Contusion of eyeball and orbital tissues, right eye, initial encounter Record reviewed to determine appropriate education?: Yes Instructions: ED Contusion Face Follow-Up: Paris Jimenez PA [Primary Care Provider] - Prescriptions: Cephalexin [Keflex] 500 mg PO TID #15 capsule Comments: There are no signs of fractures nor internal bleeding on the CT scans of the orbits and head. You can use cool towels or ice to the area around the eye for swelling. Use some antibiotic ointment to the abrasion on the eyebrow twice daily. I would stop the Levaquin antibiotic as this might be contributing to some balance problems and fall. That is a side effect of it for some people. Instead I would use cephalexin 500 mg 3 times a day for 5 days to finish out treating the pneumonia. Maintain good hydration. Keep other medications the same. Discharge Date/Time: 08/02/17 18:18
[2017-08-02 16:46] LABS: BASOPHILS # (AUTO) 0.1 10^3/uL (0.0-0.1); EOSINOPHILS # (AUTO) 0.2 10^3/uL (0.0-0.7); EOSINOPHILS % (AUTO) 1.5 %; HGB - HEMOGLOBIN 12.2 g/dL (12.0-16.0); LYMPHOCYTES # (AUTO) 1.5 10^3/uL (1.5-3.5); LYMPHOCYTES % (AUTO) 12.9 %; MEAN CORPUSCULAR HEMOGLOBIN 28.4 pg (27.0-31.0); MEAN CORPUSCULAR HGB CONC 32.1 g/dL (32.0-36.0); MEAN CORPUSCULAR VOLUME 88.4 fL (81.0-99.0); MONOCYTES # (AUTO) 1.4 10^3/uL (0.0-1.0); MONOCYTES % (AUTO) 11.9 %; NEUTROPHILS # (AUTO) 8.5 10^3/uL (1.5-6.6); NEUTROPHILS % (AUTO) 72.7 %; PLT - PLATELET COUNT 357 10^3/uL (130-450); RED BLOOD COUNT 4.28 10^6/uL (4.20-5.40); RED CELL DISTRIBUTION WIDTH 13.4 % (12.0-15.0); WHITE BLOOD COUNT 11.7 x10^3/uL (4.8-10.8)
[2017-08-02 16:59] LABS: ALBUMIN/GLOBULIN RATIO 0.9 (1.0-2.2); BILIRUBIN,TOTAL 0.5 mg/dL (0.2-1.0); CALCIUM 8.5 mg/dL (8.5-10.3); CREATININE 0.7 mg/dL (0.4-1.0); TOTAL PROTEIN 6.5 g/dL (6.7-8.2)
--- NOTE | 2017-08-02 17:20 | CT Preliminary Report ---
Exam: CT ORBITS W/O IMPRESSION: 1. No evidence of orbital or other facial fracture. 2. There is right preseptal periorbital soft tissue swelling and hematoma. No post-septal pathology, including no retrobulbar hematoma. [facility] SITE ID: [id number]
--- NOTE | 2017-08-02 17:21 | CT Report ---
EXAM: CT MAXILLOFACIAL WITHOUT CONTRAST EXAM DATE: 08/02/2017 04:52 PM. CLINICAL HISTORY: Fell last night/ bruising periorbital. COMPARISONS: CT head 08/02/2017 TECHNIQUE: Thin-section axial images were acquired of the face without contrast. Post-processing: Cor onal and sagittal reformats. Other: None. In accordance with CT protocol optimization, one or more of the following dose reduction techniques w ere utilized for this exam: automated exposure control, adjustment of mA and/or KV based on patient s ize, or use of iterative reconstructive technique. FINDINGS: Soft Tissue: No mass or fluid collection.The infratemporal fossa and parapharyngeal spaces are unrema rkable. Orbits: There is right preseptal periorbital soft tissue swelling and hematoma. No post-septal pathol ogy, including no retrobulbar hematoma. The patient is status post bilateral lens replacement surgery . The optic globes are otherwise unremarkable. Bones: No fracture or bone lesion. Temporomandibular Joints: The temporomandibular joints are symmetric and normally located. Sinuses: Normal. No mucosal thickening or fluid levels. Other: None. IMPRESSION: 1. No evidence of orbital or other facial fracture. 2. There is right preseptal periorbital soft tissue swelling and hematoma. No post-septal pathology, including no retrobulbar hematoma. [facility] Referring Provider Line: [phone] SITE ID: [id number]
--- NOTE | 2017-08-02 17:31 | CT Report ---
EXAM: CT HEAD EXAM DATE: 08/02/2017 05:06 PM. CLINICAL HISTORY: Fell last night/bruising right periorbital. COMPARISON: CT head 02/27/2017 TECHNIQUE: Multiaxial CT images were obtained from the foramen magnum to the vertex. Reformats: Coron al. IV contrast: None. In accordance with CT protocol optimization, one or more of the following dose reduction techniques w ere utilized for this exam: automated exposure control, adjustment of mA and/or KV based on patient s ize, or use of iterative reconstructive technique. FINDINGS: Parenchyma: No intraparenchymal hemorrhage. No evidence of mass, midline shift, or CT findings of acu te infarction. Cespedes-white differentiation is distinct. 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 Extraaxial Spaces: Normal for age. No subdural or epidural collections identified. Ventricles: The ventricles and cortical sulci are enlarged, consistent with age-related tissue loss. Sinuses and orbits: Status post bilateral lens replacement surgery. Imaged paranasal sinuses, orbits otherwise, and mastoids show no significant abnormality. Bones: No evidence of fracture or calvarial defect. Mild right preseptal periorbital soft tissue swel ling and hematoma with no underlying fracture. Other: Mild atherosclerosis intracranial arteries. IMPRESSION: 1. Generalized age-related cortical atrophic changes without evidence of acute intracranial abnormali ty. 2. Mild right preseptal periorbital soft tissue swelling and hematoma, with no underlying fracture. [facility] Referring Provider Line: [phone] SITE ID: [id number]
[2017-08-02 18:17] VITALS: BP 137/61
== END 2017-08-02 18:18 | disposition home or self-care (01) ==
LOC: ED 14:56
DX: R26.89 Other abnormalities of gait and mobility (principal); S05.11XA Contusion of eyeball and orbital tissues, right eye, initial encounter; W19.XXXA Unspecified fall, initial encounter; I10 Essential (primary) hypertension; E78.00 Pure hypercholesterolemia, unspecified
CPT/HCPCS: 36415; 70450; 70480; 80053; 81001; 81003; 83690; 85025; 87086; 99283; 99284

== ENCOUNTER 2017-09-02 08:23 | Outpatient (CLI) | payer MEDICARE, OTHER | END 2017-09-02 08:24 | disposition critical access hospital (66) | LOC: EMS 08:23 | PROVIDERS: ATTEND Surgery | DX: S69.92XA Unspecified injury of left wrist, hand and finger(s), initial encounter (principal); W18.39XA Other fall on same level, initial encounter; Y93.01 Activity, walking, marching and hiking; Y92.039 Unspecified place in apartment as the place of occurrence of the external cause | CPT/HCPCS: A0425; A0429 ==

== ENCOUNTER 2017-09-02 08:39 | Emergency (ER) | payer MEDICARE, OTHER ==
--- NOTE | 2017-09-02 08:50 | ED Physician Documentation ---
PD HPI UPPER EXT INJURY - Stated complaint Stated Complaint: GLF - Chief complaint Chief Complaint: Ext Problem - History obtained from History obtained from: Patient, EMS - History of Present Illness Location: Left, Wrist Type of injury: Fall (she was waliing in her room with walker to go to the bathroom, and fell. She says she felt okay prior to the fall. Does not know how she tripped. Hurt her wrist. Was not able to get back up, but caregivers came and found her on floor, and helped her up. No injury to head, neck, chest, abd.) Where injury occurred: Home (Assisted Living) Timing - onset: Today (early this morning) Timing - details: Abrupt onset, Still present Worsened by: Moving, Palpating Associated symptoms: Swelling. No: Weakness, Numbness Contributing factors: No: Anticoagulated Similar symptoms before: Has not had sx before Recently seen: Not recently seen Review of Systems Constitutional: denies: Fever Nose: denies: Rhinorrhea / runny nose, Congestion Throat: denies: Sore throat Cardiac: denies: Chest pain / pressure, Palpitations Respiratory: denies: Dyspnea, Cough GI: denies: Abdominal Pain, Nausea, Vomiting, Diarrhea Neurologic: denies: Generalized weakness, Near syncope, Headache, Head injury PD PAST MEDICAL HISTORY - Past Medical History Cardiovascular: Hypertension, High cholesterol Respiratory: COPD Endocrine/Autoimmune: None GI: GERD, Other : None HEENT: None Psych: None Musculoskeletal: Chronic back pain Derm: None - Past Surgical History Past Surgical History: Yes General: Cholecystectomy, Appendectomy, 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 HEENT: Cataracts - Present Medications Home Medications: Ambulatory Orders Medication Instructions Recorded Confirmed Acetaminophen [Tylenol] 1,300 mg PO Q8HR 10/20/15 08/02/17 Hydrochlorothiazide 25 mg PO DAILY 10/20/15 08/02/17 Tiotropium [place] [Spiriva] 1 puffs INH DAILY 10/20/15 08/02/17 Atorvastatin [Lipitor] 10 mg PO QPM 07/26/17 08/02/17 Omeprazole [PriLOSEC] 20 mg PO QDAC 07/26/17 08/02/17 Potassium Chloride [Klor-Con M20] 20 meq PO DAILYWM 07/26/17 08/02/17 Sertraline [Zoloft] 50 mg PO DAILY 07/26/17 08/02/17 Saccharomyces Boulardii [Florastor] 250 mg PO BID 14 Days #28 capsule 07/29/17 08/02/17 levoFLOXacin [Levofloxacin] 500 mg PO DAILY 7 Days #10.5 tablet 07/29/17 Cephalexin [Keflex] 500 mg PO TID #15 capsule 08/02/17 HYDROcod/ACETAM 5/325 [[place] 5/325] 1 tab PO Q6H PRN #15 tablet 09/02/17 Naproxen 375 mg PO BID #20 tablet 09/02/17 - Allergies Allergies/Adverse Reactions: Allergies Allergy/AdvReac Type Severity Reaction Status Date / Time tetracycline Allergy Rash Verified 08/02/17 15:11 - Social History Does the pt smoke?: No Smoking Status: Never smoker Does the pt drink ETOH?: No Does the pt have substance abuse?: No - Immunizations Immunizations are current?: Yes - POLST Patient has POLST: No PD ED PE NORMAL - Vitals Vital signs reviewed: Yes - General General: Alert and oriented X 3, No acute distress, Well developed/nourished - HEENT HEENT: Atraumatic, PERRL - Neck Neck: Supple, no meningeal sign, No bony TTP, No adenopathy - Cardiac Cardiac: RRR, No murmur - Respiratory Respiratory: Clear bilaterally, Other (no chestwall tenderness) - Abdomen Abdomen: Normal bowel sounds, Soft, Non tender, Non distended - Back Back: No CVA TTP, No spinal TTP - Derm Derm: Normal color, Warm and dry - Extremities Extremities: Other (left wrist with tenderness and swelling dorsal radial side. Not at snuffbox itself. ) - Neuro Neuro: Alert and oriented X 3, No motor deficit, No sensory deficit, Normal speech Eye Opening: Spontaneous Motor: Obeys Commands Verbal: Oriented GCS Score: 15 - Psych Psych: Normal mood, Normal affect Results - Vitals Vitals: Vital Signs - 24 hr 09/02/17 09/02/17 08:43 11:15 Temperature 36.1 C L 36.4 C L Heart Rate 85 76 Respiratory 16 18 Rate Blood Pressure 158/72 H 135/61 H O2 Saturation 98 96 Oxygen O2 Source Nasal cannula - Rads (name of study) left wrist Radiology: Prelim report reviewed (colles fracture with comminuted fracture distal radius, impacted and dorsally displaced. ), EMP read contemporaneously Procedures - Splint (location) left wrist Splint applied by: Physician, Jacki Type of splint: Fiberglass (with some dorsal pressure for straightening/ alignment), Sugar tong Other: Patient tolerated well, No complications, Neurovascular intact, Good alignment, Sling provided PD MEDICAL DECISION MAKING - ED course Complexity details: reviewed results, considered differential (hematoma block placed with Marcaine with good effect. No pain with pulling the wrist and the splinting it. ), d/w patient, d/w family Departure - Departure Disposition: Home, Self Care Clinical Impression: Fall from slip, trip, or stumble Qualifiers: Encounter type: initial encounter Qualified Code(s): W01.0XXA - Fall on same level from slipping, tripping and stumbling without subsequent striking against object, initial encounter Fracture, Colles, left, closed Qualifiers: Encounter type: initial encounter Qualified Code(s): S52.532A - Colles' fracture of left radius, initial encounter for closed fracture Condition: Stable Record reviewed to determine appropriate education?: Yes Instructions: ED Fx Colles Wrist Redu Requ Follow-Up: Froylan Kevin MD [Provider Admit Priv/Credential] - Paris Jimenez PA [Primary Care Provider] - Prescriptions: HYDROcod/ACETAM 5/325 [[place] 5/325] 1 tab PO Q6H PRN #15 tablet PRN Reason: Pain Naproxen 375 mg PO BID #20 tablet Comments: Keep the splint on in the arm and wrist elevated often. Use the sling to help support it. It is okay to use your fingers for light use as comfortable. Call the orthopedic office tomorrow for follow-up appointment later in the week. The fracture will likely need a bit more reducing when it is changed to a cast after the swelling is down. No orthopedist will talk to you about whether they think it might need surgery in order to exit better. This will be determined a bit by how the pieces come together with just manipulation. He can use some naproxen or ibuprofen twice daily with food for the next week. Add Tylenol to that for pain. You can add stronger hydrocodone if needed for worse pain. Discharge Date/Time: 09/02/17 12:18
[2017-09-02] MEDS ORDERED: ACETAMINOPHEN 325 MG TABLET PO STA (08:51)
--- NOTE | 2017-09-02 09:35 | XRAY Report ---
EXAM: LEFT WRIST RADIOGRAPHY EXAM DATE: 09/02/2017 08:59 AM. CLINICAL HISTORY: Fell onto left wrist. COMPARISON: None. TECHNIQUE: 4 views. FINDINGS: Bones: Impacted, mildly comminuted, intra-articular fracture of the distal radial metaphysis with mod erate dorsal angulation. Minimally displaced ulnar styloid fracture appears acute. The bones are diffusely demineralized. Joints: No dislocation. Mild to moderate degenerative change. Soft Tissues: Diffuse soft tissue swelling. IMPRESSION: 1. Acute, comminuted, displaced, intra-articular fracture of the distal radius. 2. Minimally displaced ulnar styloid fracture also appears acute. [facility] Referring Provider Line: [phone] SITE ID: [id number]
[2017-09-02] MEDS ORDERED: HYDROcod/ACETAM 5/325 MG TABLET PO STA (10:13)
[2017-09-02] MEDS ORDERED: KETOROLAC 15 MG/ML VIAL IM STA (10:13)
[2017-09-02 11:17] VITALS: BP 135/61
== END 2017-09-02 12:18 | disposition home or self-care (01) ==
LOC: EDUNIT# → ED 08:39
DX: S52.532A Colles' fracture of left radius, initial encounter for closed fracture (principal); W01.0XXA Fall on same level from slipping, tripping and stumbling without subsequent striking against object, initial encounter; Y93.01 Activity, walking, marching and hiking; Y92.009 Unspecified place in unspecified non-institutional (private) residence as the place of occurrence of the external cause; I10 Essential (primary) hypertension; E78.00 Pure hypercholesterolemia, unspecified
CPT/HCPCS: 29105; 64450; 73110; 96372; 99283; 99284; A9270